=== PATIENT | female | born 1945 | race Caucasian/White ===

== ENCOUNTER 2020-03-30 10:34 | Emergency (ER) | payer MEDICARE ==
[2020-03-30 10:44] VITALS: RESP 18
[2020-03-30] MEDS ORDERED: ASPIRIN 81 MG PO STA (10:59)
--- NOTE | 2020-03-30 11:11 | ED ---
General Adult HPI - General Chief complaint: Extremity Injury, Upper Stated complaint: Shoulder Pain Time Seen by Provider: 03/30/20 10:45 Source: patient, EMS, RN notes reviewed, old records reviewed Mode of arrival: EMS - History of Present Illness Initial comments: 75-year-old female patient to ED for evaluation of left shoulder pain, she reports she is in pain consistently for the last 3 days. She reports that her pain is along her trapezius as well as the anterior aspect of left shoulder. She does report that is tender on palpation reproducible with movement. She denies any falls or any acute injury which he could think of that caused the pain. Denies any anterior chest pain or shortness of breath. Patient does have a history of atrial fibrillation which he is anticoagulated on xaralto, however she does not have any prior cardiac history otherwise. Systemic: Pt denies fatigue, fever/chills, rash. Pt denies weakness, night sweats, weight loss. Neuro: Pt denies headache, visual disturbances, syncope or pre-syncope. HEENT: Pt denies ocular discharge or irritation, otalgia, rhinorrhea, pharyngitis or notable lymphadenopathy. Cardiopulmonary: Pt denies chest pain, SOB, heart palpitations, dyspnea on exertion. Abdominal/GI: Pt denies abdominal pain, n/v/d. : Pt denies dysuria, burning w/ urination, frequency/urgency. Denies new onset urinary or bowel incontinence. MSK: Pt denies loss of strength or function in extremities. Neuro: Pt denies new onset weakness, paresthesias. - Related Data Home Medications Medication Instructions Recorded Confirmed Acetaminophen Tab [Tylenol Tab] 1,000 mg PO Q6HR PRN 03/30/20 03/30/20 Albuterol Inhaler [Ventolin Hfa 1 puff INHALATION RT-Q4H PRN 03/30/20 03/30/20 Inhaler] Ascorbic Acid/Multivit-Min 1,000 mg PO DAILY 03/30/20 03/30/20 [Emergen-C 1,000 mg Packet] Aspirin/Acetaminophen/Caffeine 1 tab PO DAILY PRN 03/30/20 03/30/20 [Excedrin Migraine Caplet] Aspirin/Sod Bicarb/Citric Acid 1 tab PO DAILY PRN 03/30/20 03/30/20 [Dodie-Westfir Original Tab Eff] Atorvastatin [Lipitor] 20 mg PO HS 03/30/20 03/30/20 Bismuth Subsalicylate 30 mg PO DAILY PRN 03/30/20 03/30/20 [Pepto-Bismol] Cholecalciferol [Vitamin D3 (25 1,000 unit PO BID 03/30/20 03/30/20 Mcg = 1000 Iu)] Dulaglutide [Trulicity] 1.5 mg SQ BAKER 03/30/20 03/30/20 Fexofenadine HCl [Pallavi Allergy] 180 mg PO DAILY 03/30/20 03/30/20 Fluticasone Nasal [place] [Flonase 1 spr EA NOSTRIL DAILY PRN 03/30/20 03/30/20 Nasal [place]] Glucosam/Kenneth-Msm1/C/Jayy/Bosw 2 tab PO BID 03/30/20 03/30/20 [Glucosamine-Chondroitin Tablet] Insulin Aspart (Niacinamide) 12 - 14 units SQ AC-TID 03/30/20 03/30/20 [Fiasp 100 Unit/ml Flextouch] Insulin Detemir [Levemir Flextouch] 42 units SQ HS MDD PLUS SCALE 03/30/20 03/30/20 Insulin Detemir [Levemir Flextouch] See Protocol SQ HS PRN 03/30/20 03/30/20 Lisinopril-Hctz 20-25 mg 1 tab PO DAILY 03/30/20 03/30/20 [Zestoretic 20-25] Meclizine [Antivert] 12.5 mg PO HS 03/30/20 03/30/20 Metoprolol Succinate [Toprol XL] 50 mg PO BID 03/30/20 03/30/20 Naproxen Sodium [Aleve] 220 mg PO DAILY PRN 03/30/20 03/30/20 Occular Nutrition Hi Health 1 tab PO DAILY 03/30/20 03/30/20 [place]-3 Fatty Acids/Fish Oil [Fish 1 cap PO DAILY 03/30/20 03/30/20 Oil 1,000 mg Softgel] RX: Lansoprazole 30 mg PO DAILY 03/30/20 03/30/20 RX: metFORMIN HCL 2,000 mg PO HS 03/30/20 03/30/20 Rivaroxaban [Xarelto] 20 mg PO HS 03/30/20 03/30/20 Symbicort Unknown Dose 2 puff INHALATION RT-BID PRN 03/30/20 03/30/20 Tiotropium 18 Mcg/Puff [Spiriva] 1 puff INHALATION DAILY PRN 03/30/20 03/30/20 Allergies Allergy/AdvReac Type Severity Reaction Status Date / Time No Known Allergies Allergy Verified 03/30/20 13:02 Review of Systems ROS Statement: Those systems with pertinent positive or pertinent negative responses have been documented in the HPI. ROS Other: All systems not noted in ROS Statement are negative. Past Medical History Past Medical History: Atrial Fibrillation, Diabetes Mellitus, Osteoarthritis (OA) History of Any Multi-Drug Resistant Organisms: None Reported Past Surgical History: Hysterectomy Additional Past Surgical History / Comment(s): LUMPECTOMY Smoking Status: Second hand smoke exposure Past Alcohol Use History: None Reported Past Drug Use History: None Reported General Exam - General Exam Comments Initial Comments: Constitutional: NAD, AOX3, Pt has pleasant affect. HEENT: NC/AT, trachea midline, neck supple, no lymphadenopathy. Posterior pharynx non erythematous, without exudates. External ears appear normal, without discharge. Mucous membranes moist. Eyes PERRLA, EOM intact. There is no scleral icterus. No pallor noted. Cardiopulmonary: RRR, no murmurs, rubs or gallops, no JVD noted. Lungs CTAB in anterior and posterior snell. No peripheral edema. Abdominal exam: Abdomen soft and non-distended. Abdomen non-tender to palpation in all 4 quadrants. Bowel sounds active in LLQ. No hepatosplenomegaly. No ecchymosis Neuro: CN II-XII grossly intact. No nuchal rigidity. No raccon eyes, no hare sign, no hemotympanum. No cervical spinal tenderness. MSK: No posterior calf tenderness bilaterally, homans sign negative bilaterally. Posterior tibialis and radial pulse +2 bilaterally. Sensation intact in upper and lower extremities. Full active ROM in upper and lower extremities. mild tenderness along the left lateral trapezius as well as the anterior shoulder. Range of motion is intact and strength is intact but this does reproduce discomfort. Empty can test positive. Radial Pulses intact and equal. Course Vital Signs 03/30/20 10:38 Temperature 99.5 F Pulse Rate 77 Respiratory 18 Rate Blood Pressure 134/71 O2 Sat by Pulse 97 Oximetry Medical Decision Making - Medical Decision Making 75-year-old female patient to ED for left shoulder pain for the last 3 days. Patient also had a stable, afebrile. Patient does have tenderness to palpation of the shoulder there is no skin changes range of motion reproduces discomfort. Plain films displayed mild to moderate before meals joint osteoarthritis with inferior spurring which may contribute to subacromial impingement. Possible loss of subacromial space. EKG is nonischemic. Laboratory investigations are otherwise unremarkable. Troponin is negative. Chest x-ray is negative for acute process. Patient's symptoms appear to be secondary to musculoskeletal process. Patient will be discharged PCP as well as outpatient orthopedic follow-up as well as return precautions. Case discussed with Dr. Zuleat. - Lab Data Result diagrams: 03/30/20 11:40 03/30/20 11:40 Lab Results 03/30/20 03/30/20 03/30/20 Range/Units 11:40 11:40 11:40 WBC 9.4 (3.8-10.6) k/uL RBC 4.63 (3.80-5.40) m/uL Hgb 13.9 (11.4-16.0) gm/dL Hct 40.1 (34.0-46.0) % MCV 86.5 (80.0-100.0) fL MCH 29.9 (25.0-35.0) pg MCHC 34.6 (31.0-37.0) g/dL RDW 13.0 (11.5-15.5) % Plt Count 362 (150-450) k/uL MPV 6.4 Neutrophils % 66 % Lymphocytes % 22 % Monocytes % 6 % Eosinophils % 3 % Basophils % 1 % Neutrophils # 6.2 (1.3-7.7) k/uL Lymphocytes # 2.1 (1.0-4.8) k/uL Monocytes # 0.6 (0-1.0) k/uL Eosinophils # 0.3 (0-0.7) k/uL Basophils # 0.1 (0-0.2) k/uL PT 10.9 (9.0-12.0) sec INR 1.1 (<1.2) APTT 24.3 (22.0-30.0) sec Sodium 139 (137-145) mmol/L Potassium 4.1 (3.5-5.1) mmol/L Chloride 103 (98-107) mmol/L Carbon Dioxide 27 (22-30) mmol/L Anion Gap 9 mmol/L BUN 17 (7-17) mg/dL Creatinine 0.86 (0.52-1.04) mg/dL Est GFR (CKD-EPI)AfAm 77 (>60 ml/min/1.73 sqM) Est GFR (CKD-EPI)NonAf 66 (>60 ml/min/1.73 sqM) Glucose 159 H (74-99) mg/dL Calcium 9.8 (8.4-10.2) mg/dL Magnesium 1.7 (1.6-2.3) mg/dL Total Bilirubin 0.5 (0.2-1.3) mg/dL AST 28 (14-36) U/L ALT 27 (4-34) U/L Alkaline Phosphatase 75 (38-126) U/L Troponin I (0.000-0.034) ng/mL NT-Pro-B Natriuret Pep pg/mL Total Protein 6.6 (6.3-8.2) g/dL Albumin 4.1 (3.5-5.0) g/dL 03/30/20 03/30/20 Range/Units 11:40 11:40 WBC (3.8-10.6) k/uL RBC (3.80-5.40) m/uL Hgb (11.4-16.0) gm/dL Hct (34.0-46.0) % MCV (80.0-100.0) fL MCH (25.0-35.0) pg MCHC (31.0-37.0) g/dL RDW (11.5-15.5) % Plt Count (150-450) k/uL MPV Neutrophils % % Lymphocytes % % Monocytes % % Eosinophils % % Basophils % % Neutrophils # (1.3-7.7) k/uL Lymphocytes # (1.0-4.8) k/uL Monocytes # (0-1.0) k/uL Eosinophils # (0-0.7) k/uL Basophils # (0-0.2) k/uL PT (9.0-12.0) sec INR (<1.2) APTT (22.0-30.0) sec Sodium (137-145) mmol/L Potassium (3.5-5.1) mmol/L Chloride (98-107) mmol/L Carbon Dioxide (22-30) mmol/L Anion Gap mmol/L BUN (7-17) mg/dL Creatinine (0.52-1.04) mg/dL Est GFR (CKD-EPI)AfAm (>60 ml/min/1.73 sqM) Est GFR (CKD-EPI)NonAf (>60 ml/min/1.73 sqM) Glucose (74-99) mg/dL Calcium (8.4-10.2) mg/dL Magnesium (1.6-2.3) mg/dL Total Bilirubin (0.2-1.3) mg/dL AST (14-36) U/L ALT (4-34) U/L Alkaline Phosphatase (38-126) U/L Troponin I <0.012 (0.000-0.034) ng/mL NT-Pro-B Natriuret Pep 1200 pg/mL Total Protein (6.3-8.2) g/dL Albumin (3.5-5.0) g/dL Disposition Clinical Impression: Shoulder pain Disposition: HOME SELF-CARE Condition: Stable Instructions (If sedation given, give patient instructions): Rotator Cuff Injury (ED), Shoulder Sprain (ED) Additional Instructions: Follow up with PCP tomorrow. Follow up with orthopedic consult tomorrow. Return to ED with any worsening symptoms. Is patient prescribed a controlled substance at d/c from ED?: No Referrals: Nonstaff,Physician [REFERRING] - 1-2 days Natan Bunch MD [STAFF PHYSICIAN] - 1-2 days
[2020-03-30 11:49] LABS: Basophils # (A) 0.1 k/uL (0-0.2); Basophils % (A) 1 %; Eosinophils # (A) 0.3 k/uL (0-0.7); Eosinophils % (A) 3 %; HCT 40.1 % (34.0-46.0); HGB 13.9 gm/dL (11.4-16.0); Lymphocytes # (A) 2.1 k/uL (1.0-4.8); Lymphocytes % (A) 22 %; MCH 29.9 pg (25.0-35.0); MCHC 34.6 g/dL (31.0-37.0); MCV 86.5 fL (80.0-100.0); Mean Platelet Volume 6.4; Monocytes # (A) 0.6 k/uL (0-1.0); Monocytes % (A) 6 %; Neutrophils # (A) 6.2 k/uL (1.3-7.7); Neutrophils % (A) 66 %; Platelet Count 362 k/uL (150-450); RBC 4.63 m/uL (3.80-5.40); WBC 9.4 k/uL (3.8-10.6)
[2020-03-30 11:59] LABS: INR 1.1 (<1.2); Partial Thromboplastin Time 24.3 sec (22.0-30.0); Prothrombin Time 10.9 sec (9.0-12.0)
[2020-03-30 12:04] LABS: Albumin 4.1 g/dL (3.5-5.0); Calcium 9.8 mg/dL (8.4-10.2); Magnesium 1.7 mg/dL (1.6-2.3); Potassium 4.1 mmol/L (3.5-5.1); Total Bilirubin 0.5 mg/dL (0.2-1.3); Total Protein 6.6 g/dL (6.3-8.2)
--- NOTE | 2020-03-30 12:05 | XR ---
EXAMINATION TYPE: XR chest 2V DATE OF EXAM: 03/30/2020 COMPARISON: None HISTORY: 75-year-old female with chest pain and left shoulder pain TECHNIQUE: AP and lateral views FINDINGS: Heart limits of normal in size. The aorta and pulmonary vasculature within normal limits. Mild inters titial prominence has a chronic appearance. No consolidation or pleural effusion. IMPRESSION: Chronic appearing changes without acute cardiopulmonary process.
--- NOTE | 2020-03-30 12:07 | XR ---
EXAMINATION TYPE: XR shoulder complete LT DATE OF EXAM: 03/30/2020 Comparison: None Clinical History: 75-year-old female shoulder pain Findings: Mild to moderate degenerative change at the AC joint. Inferior spurring is present. There may be some narrowing of the subacromial space on the Grashey view. Some bony irregularity at the greater tubero sity. No acute fracture, subluxation, or dislocation seen. Impression: 1. Tjlh-ea-baeibqcd AC joint OA but with inferior spurring which may contribute to subacromial imping ement. 2. Possible loss of the subacromial space on the Grashey view. If concern for underlying full-thickne ss rotator cuff tear, MRI can be performed. 3. Otherwise, no acute osseous abnormality seen.
[2020-03-30] MEDS ORDERED: MORPHINE SULFATE 2 MG/ML SYRINGE IV STA (12:25)
[2020-03-30] MEDS ORDERED: ACET/COD 300 MG/30 MG STARTER PACK 6 TAB BTL PO STA (13:52)
[2020-03-30 14:19] VITALS: BP 132/76; PULSE 79; TEMP 98.9
== END 2020-03-30 14:21 | disposition home or self-care (01) ==
LOC: EC 10:34
DX: M25.512 Pain in left shoulder (principal); M19.012 Primary osteoarthritis, left shoulder; I48.91 Unspecified atrial fibrillation; E11.9 Type 2 diabetes mellitus without complications; Z79.899 Other long term (current) drug therapy; Z79.4 Long term (current) use of insulin; Z79.01 Long term (current) use of anticoagulants; Z77.22 Contact with and (suspected) exposure to environmental tobacco smoke (acute) (chronic)
CPT/HCPCS: 36415; 93005; 83880; 80053; 83735; 84484; 85025; 85610; 85730; 73030; 71046; 99285; 96374; J2270

== ENCOUNTER → 2020-11-15 | Outpatient (CLI) | payer MEDICARE ==
--- NOTE | 2020-11-15 10:31 | CT ---
EXAMINATION TYPE: CT lumbar spine wo con DATE OF EXAM: 11/15/2020 10:10 AM COMPARISON: None HISTORY: Pain CT DLP: 2106.2 mGycm Automated exposure control for dose reduction was used. Unenhanced CT of the lumbar spine was performed. Bone and soft tissue window settings are submitted as well as coronal and sagittal reconstructions. L1-L2: Normal disc space height. No disc herniation protrusion or central stenosis. No facet joint arthropathy. No evidence for foraminal encroachment. L2-L3: Broad-based central disc bulging with mild effacement of thecal sac. Hypertrophied facets and ligamentum flavum. Borderline canal stenosis and mild bilateral foraminal encroachment. L3-L4: Broad-based central disc bulging with mild effacement of thecal sac. There is facet arthropath y. Mild bilateral foraminal encroachment and mild canal stenosis. Greater disc bulging paracentrally and laterally to left resulting greater left-sided foraminal encroachment. L4-L5: Vacuum disc compatible severe degenerative disc disease with severe advanced facet arthropathy . There is a grade 1 anterolisthesis which appears degenerative. Sclerotic changes involving the pars there is seen L5 bilaterally without evidence of overt defect. A broad-based disc bulging with hyper trophy ligamentum flavum results in moderate canal stenosis and bilateral foraminal encroachment. L5-S1: Severe degenerative disc disease complete loss of disc space. There is facet arthropathy. Ante rior ankylosis of the L5 and S1 vertebral segments. Neural foramina demonstrate mild encroachment joe aterally. No obvious disc herniation or canal stenosis Assessment spinal canal is limited due to resolution artifact. Aorta demonstrates atherosclerotic rancho nges. SI joint arthropathy noted. IMPRESSION: 1. Grade 1 anterolisthesis L4 and L5 with severe facet arthropathy. Disc bulging at this level result s in moderate canal stenosis and bilateral foraminal encroachment. 2. Disc bulging L2-3 and L3-L4 results in canal stenosis and foraminal encroachment as above.
--- NOTE | 2020-11-15 16:59 | MR ---
EXAMINATION TYPE: MR lumbar spine wo con DATE OF EXAM: 11/15/2020 COMPARISON: CT lumbar spine November 15, 2020 HISTORY: Low back pain TECHNIQUE: Multiplanar, multisequence images of the lumbar spine were acquired. Conus medullaris appears normal and is located at L1. Normal lumbar lordosis. Mild anterolisthesis of L4 on L5. Less than 25% body height loss of L5 remaining vertebral body heights are maintained. Bone marrow sig nal. There is multilevel degenerative disc disease in the mid to lower lumbar spine. L1-L2: Normal disc appearance without desiccation. No herniation, protrusion or disc bulging. Bilate ral facet joint arthropathy and small effusions. Ligamentum flavum thickening. No canal stenosis is p resent. Foramina are patent bilaterally. L2-L3: Disc desiccation. Mild disc bulge. Facet joint arthropathy and ligamentum flavum thickening. T here is no canal or neuroforaminal stenosis. L3-L4: Disc desiccation and height loss. Facet joint arthropathy and ligamentum flavum thickening. Th ere is prominent epidural fat. There is severe canal stenosis. Thickened neuroforaminal stenosis. L4-L5: Mild anterolisthesis of L4 on L5 causes mild uncovering of the disc. There is moderate disc he ight loss with vacuum disc phenomena. There is facet joint arthropathy and ligamentum flavum thickeni ng, there is prominent epidural fat. There is moderate canal stenosis. Mild bilateral neural foramina l stenosis, greater on the right. L5-S1: Degenerative disc disease with significant diagnosis. Circumferential disc bulge, facet joint arthropathy and ligamentum flavum thickening. No significant canal or foraminal stenosis. Lumbar segments are intact. No paraspinal masses are identified. 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 No high-grade neural foraminal stenosis.
== END | disposition home or self-care (01) ==
LOC: RADCTMAIN 09:34
PROVIDERS: ATTEND Orthopaedic Surgery
DX: M48.061 Spinal stenosis, lumbar region without neurogenic claudication (principal); M51.26 Other intervertebral disc displacement, lumbar region; M46.96 Unspecified inflammatory spondylopathy, lumbar region
CPT/HCPCS: 72131; 72148

== ENCOUNTER 2020-12-17 06:00 | Inpatient (IN) | payer MEDICARE ==
[2020-12-13 08:49] VITALS: BMI 43.9
--- NOTE | 2020-12-16 10:21 | HP ---
HISTORY AND PHYSICAL CHIEF COMPLAINT: Right knee pain. HISTORY OF PRESENT ILLNESS: Patient is a 75-year-old retired female who presents with progressive right knee pain secondary to osteoarthrosis despite extensive conservative measures for the past several years. It has worsened recently. She is limping. She is having a difficult time in normal activities. She has tried medications in addition to injections, along with attempted weight loss. She notes she is significantly limited. PAST MEDICAL HISTORY: Significant for COPD, type 2 diabetes, atrial fibrillation, gastroesophageal reflux disease and hypertension. PAST SURGICAL HISTORY: Significant for hysterectomy and colonoscopy. CURRENT MEDICATIONS: Albuterol, atorvastatin, lansoprazole, lisinopril, Lovaza, metformin, Xarelto, meloxicam and Tylenol. ALLERGIES: SHE DENIES DRUG ALLERGIES. FAMILY HISTORY: Significant for heart disease and cancer. SOCIAL HISTORY: Negative for current tobacco or alcohol use. REVIEW OF SYSTEMS: Sixteen-point review of systems is otherwise reviewed and noncontributory. PHYSICAL EXAMINATION: On examination, the patient is approximately 5 feet 6 inches, 274 pounds of endomorphic habitus. HEENT exam is nonfocal. Neck is supple. She has painless passive motion of the right hip. Straight-leg raise is negative. Active motion of right knee minus 10 to 105 degrees of flexion. She has a mild effusion. She is tender about the medial joint line. Collaterals are stable, Isadora is negative. Garland's is equivocal. She is tender about the medial joint line. She has genu varum alignment. Her distal neurovascular exam appears intact in the right lower extremity. Weightbearing notch, lateral and Merchant views of the right knee obtained in the office show severe medial compartment narrowing with [id number] changes and subchondral sclerosis. There is also significant medial compartment spurring. IMPRESSION: 1. Right knee severe medial compartment osteoarthrosis. 2. Obesity. 3. [id number]-[id number] diabetes. 4. Atrial fibrillation, on anticoagulation. RECOMMENDATIONS: I talked to the patient at length regarding her condition along with treatment options. At this point she remains quite symptomatic and limited because of pain related to her osteoarthrosis despite previous conservative measures. After thorough discussion, she opted to proceed with surgery. We will plan to proceed with right total knee arthroplasty. We will reinstitute her anticoagulation with Xarelto postoperatively. Risks and benefits were discussed at length in layman's terms. She underwent preoperative medical and cardiac clearance. MMALEXANDRAL / ERICAN: [id number] /
[~2020-12-17 06:00] MED LIST: ACETAMINOPHEN TAB 500 MG TAB PO PRN; DEXAMETHASONE SOD PHOSPHATE 4 MG/ML 1 ML VIAL IV ONE; LIDOCAINE 1% (10MG/ML) FOR IV START INTRADERMA PRN; MELOXICAM 7.5 MG TAB PO PRN; ONDANSETRON 4 MG/2 ML VIAL IVP ONE; ROPIVACAINE/EPI/CLONIDINE/KET 50 ML SYRINGE MISCELLANE PRN; TRANEXAMIC ACID 1,000 MG in SODIUM CHLORIDE 0.9% 100 ML IVPB PRN; ceFAZolin 3 GM in SODIUM CHLORIDE 0.9% 100 ML IVPB PRN
[2020-12-17] MEDS: LACTATED RINGERS 1,000 ML IV SCH ×2 (07:07→22:50)
[2020-12-17 07:09] LABS: Glucose,Whole Blood 167 mg/dL (75-99)
[2020-12-17] MEDS: MIDAZOLAM 2 MG/2 ML VIAL IV PRN ×2 (07:13→07:43)
[2020-12-17] MEDS: fentaNYL (PF) 50 MCG/ML 2 ML AMP IVP PRN ×2 (07:13→07:45)
[2020-12-17] MEDS ORDERED: fentaNYL (PF) 50 MCG/ML 2 ML AMP ONE (07:45)
[2020-12-17] MEDS ORDERED: KETAMINE 10 MG/ML 20 ML VIAL ONE (07:45)
[2020-12-17] MEDS ORDERED: ROPIVACAINE 5 MG/ML 30 ML VIAL ONE (07:45)
[2020-12-17] MEDS ORDERED: PROPOFOL 10 MG/ML 20 ML VIAL IV ONE (07:45)
[2020-12-17] MEDS ORDERED: MIDAZOLAM 2 MG/2 ML VIAL ONE (07:45)
[2020-12-17] MEDS ORDERED: SODIUM CHLORIDE 0.9% 100 ML BAG ONE (07:45)
[2020-12-17] MEDS ORDERED: LIDOCAINE 1% INJ 10MG/ML (20 ML MDV) ONE (07:45)
[2020-12-17] MEDS ORDERED: PHENYLEPHRINE-0.9% NACL SYG 1,000 MCG/10 ML SYRINGE ONE (07:45)
[2020-12-17] MEDS ORDERED: GLYCOPYRROLATE 0.2 MG/ML 2 ML VIAL ONE (07:45)
[2020-12-17] MEDS ORDERED: TRANEXAMIC ACID 1,000 MG/10 ML VIAL ONE (07:45)
[2020-12-17] MEDS ORDERED: ceFAZolin 1,000 MG in SODIUM CHLORIDE 0.9% 1,000 ML IRRIGATION ONE (08:19)
--- NOTE | 2020-12-17 08:21 | P.ANPRN ---
Procedure Note - Anesthesia - Nerve Block Performed Right Adductor Canal Infusion Time Out Performed: Yes Date of Procedure: 12/17/20 Procedure Start Time: 07:12 Procedure Stop Time: :20 Location of Patient: PreOp Indication: Requested by Surgeon Specifically requested for management of pain by DrWally: Natan Bunch Sedation Type: Sedate with meaningful contact maintained Preparation: Sterile Prep, Sterile Dressing Position: Supine Needle Types: Pajunk Needle Gauge: 18, 20, 21 Ultrasound used to visualize needle placement: Yes Ultrasound used to observe medication spread: Yes Injectate: 0.5% Ropivacaine (see comment for volume) (15 ml plus 5ml NS 0.9%) Blood Aspirated: No Pain Paresthesia on Injection Noted: No Resistance on Injection: Normal Image Stored and Saved: Yes Events: Uneventful and Well Tolerated
--- NOTE | 2020-12-17 08:23 | P.ANPRN ---
Procedure Note - Anesthesia - Nerve Block Performed Right iPack Single Time Out Performed: Yes Date of Procedure: 12/17/20 Procedure Start Time: : Procedure Stop Time: :32 Location of Patient: PreOp Indication: Requested by Surgeon Specifically requested for management of pain by DrWally: Natan Bunch Sedation Type: Sedate with meaningful contact maintained Preparation: Sterile Prep Position: Left Lateral Needle Types: Pajunk Needle Gauge: 21 Ultrasound used to visualize needle placement: Yes Ultrasound used to observe medication spread: Yes Injectate: 0.5% Ropivacaine (see comment for volume) (15 ml plus 5 ml NS) Blood Aspirated: No Pain Paresthesia on Injection Noted: No Resistance on Injection: Normal Image Stored and Saved: Yes Events: Uneventful and Well Tolerated
[2020-12-17] MEDS ORDERED: ROPIVACAINE 0.2%-NS ON-Q PUMP 1,090 MG, EMPTY PAIN BALL 1 EACH MISCELLANE PRN (08:24)
[2020-12-17] MEDS ORDERED: LACTATED RINGERS 1,000 ML IV ONE (08:52)
[2020-12-17] MEDS ORDERED: HYDROmorphone 0.5 MG/0.5 ML SYRINGE IVP PRN (09:45)
[2020-12-17] MEDS ORDERED: NALOXONE 0.4 MG/ML 1 ML VIAL IV PRN (09:45)
[2020-12-17] MEDS ORDERED: HYDROcodone/APAP 5-325MG 1 EACH TAB PO PRN (09:45)
[2020-12-17] MEDS ORDERED: ALBUTEROL NEBULIZED 2.5 MG/3 ML INHALATION ONE ×2 (10:08→10:11)
--- NOTE | 2020-12-17 10:09 | P.OP ---
Date of Procedure: 12/17/20 Preoperative Diagnosis: Right knee severe tricompartmental osteoarthrosis Postoperative Diagnosis: Same Procedure(s) Performed: Right total knee arthroplastycementedposterior stabilized Implants: Depuy Attune size 5 cemented femoral component, size 4 cemented tibial component with a 50 mm tibial stem, 9 mm articular surface, 38 mm cemented patellar component. This is a posterior stabilized implant. Anesthesia: regional, spinal Surgeon: Natan Bunch Batting Machine Operator #1: Pasha Aguilar Estimated Blood Loss (ml): 50 Pathology: other (Bone fragments) Condition: stable Disposition: PACU Indications for Procedure: The patient's a 75-year-old female who presents with progressive right knee pain secondary osteoarthrosis despite conservative measures. A discussion of the risks and benefits of operative intervention versus continued conservative measures was made with patient. She proceed with surgery. Operative risks to include infection, neurovascular injury, development of blood clots, fracture, possible component loosening/failure need for subsequent procedures was discussed. Informed consent was obtained. Operative Findings: As below Description of Procedure: The patient was brought to the operating room, and after induction of spinal anesthesia the right lower extremity was prepped and draped in a normal fashion. The tourniquet was inflated to 270 mm marker. A longitudinal incision extending 3 finger breaths above the superior pole of patella extending to the medial aspect the tibial tubercle was then made. The skin and subcutaneous tissues were divided sharply. Electrocautery was used for hemostasis. A medial parapatellar arthrotomy was performed. The medial soft tissues to include the superficial and deep portions of the medial collateral ligament were elevated subperiosteally. The patella was everted. A portion of the retropatellar fat pad was excised sharply. The anterior cruciate ligament was sacrificed. Blunt retractors were placed. A starting hole was made in the distal femur 1 cm anterior to the posterior cruciate ligament origin. An intramedullary femoral guide was then inserted planning on 5 valgus distal cut with 9 mm distal resection. The cutting block was pinned in place. The distal cut was then made. The posterior referencing sizing guide was utilized. I felt size 5 was most appropriate. 3 of external rotation was built into the system and verified off the trans-epicondylar axis and the posterior condyles. The cutting block was pinned in place. The anterior, posterior, and chamfer cuts then made. Bone fragments were removed. The intercondylar guide was placed and the notch cut was made with a sagittal saw. The bone block was removed in one fragment. The trial component was then placed. There is good anterior to posterior and medial to lateral fit. The distal peg holes were drilled. The trial component was removed. Attention was then paid towards preparing the proximal femur. An extra medullary guide was utilized in line with the tibial shaft and second metatarsal distally. I planned on 2 mm resection from the medial compartment. The cutting block was pinned in place. The proximal tibial cut was then made. The bone was removed in one fragment. The remnants of the medial and lateral menisci were excised at the capsular junction with electrocautery. The tibia sized most appropriately at size 4. The trial femoral and tibial components were placed along with a 9 mm articular surface. I was able to obtain full flexion and extension with internal and external rotation. After several flexion and extension cycles, the tibial rotation was marked with electrocautery line with the medial one third of the tibial tubercle. Attention was then paid towards preparing the patella. A patella reamer was utilized taking stem to 14 mm of bone stock. A good flush cut was made. The patella sized most appropriately 38 mm. The peg holes were drilled. The trial components placed. I had good patellofemoral tracking with no hands technique. The trial components were then removed. The tibia was prepared in the appropriate rotation with appropriate drill and keel punch. The posterior osteophytes were removed with a curved osteotome. The flexion and extension gaps were checked and felt to be symmetric at 9 mm. A trial components were then removed. . The bony surfaces were prepared with pulsatile lavage and dried. The tibial component was then cemented place was fully seated. Excess cement was removed. The femoral component cemented place and was fully seated. Excess cement was removed. The trial 9 mm articular surface was placed and the knee was put in full extension. The patella component was cemented place. After the cement had sufficiently hardened, the knee was again taken through a range of motion. Again I was able to obtain full flexion and extension with varus and valgus stress. The trial 9 mm articular surface was removed and the final one inserted. This was fully seated. Care was taken to avoid any soft tissue interposition. Pulsatile lavage was again utilized. The medial parapatellar arthrotomy was closed with #2 Ethibond suture. The tourniquet was deflated with approximately 60 minutes total tourniquet time. Final hemostasis was obtained with the cautery. There was minimal bleeding therefore a deep drain was not p laced. The subcutaneous tissues were reapproximated with interrupted 2-0 Vicryl sutures. The skin was reapproximated with 3-0 subcuticular strata fix suture. Skin tape and adhesive was applied. A sterile dressing was applied. The patient was awoken from sedation and transferred to recovery room in good condition. Blood loss was estimated at 50 mL. No complications were incurred. Sponge and needle counts were correct at the end of the case. Pasha MELO assisted during the major components of this case to include exposure, bone resection, implantation, and closure.
[2020-12-17 10:18] LABS: Glucose,Whole Blood 183 mg/dL (75-99)
--- NOTE | 2020-12-17 10:55 | XR ---
EXAMINATION TYPE: XR knee limited RT DATE OF EXAM: 12/17/2020 COMPARISON: NONE TECHNIQUE: Two views submitted HISTORY: Post op FINDINGS: There is a prosthetic knee in near anatomic alignment. There is soft tissue edema and emphysema. IMPRESSION: 1. Postoperative change. Appears in near-anatomic alignment
[2020-12-17] MEDS: HYDROmorphone 0.5 MG/0.5 ML SYRINGE IVP PRN ×2 (11:13→22:47)
[2020-12-17 11:47] LABS: Glucose,Whole Blood 198 mg/dL (75-99)
--- NOTE | 2020-12-17 13:09 | P.CONS ---
<Abdon Dudley - Last Filed: 12/17/20 18:25> History of Present Illness - Reason for Consult Consult date: 12/17/20 - History of Present Illness History of Presenting Illness: Patient is a very pleasant 75-year-old female with a past medical history of hypertension, hyperlipidemia, insulin-dependent diabetes mellitus, atrial fibrillation on anticoagulation with Xarelto, COPD, and osteoarthrosis. Patient currently admitted under orthopedic surgery team with Dr. Wray status post right total knee replacement. We have been consulted for continued medical management throughout hospitalization. Upon physical examination patient reports postoperative pain currently controlled. Patient denies having any headache, lightheadedness, dizziness, chest pain, palpitations, shortness of breath, abdominal pain, nausea, vomiting, or experiencing any numbness/tingling/weakness in her extremities. Patient denies history of DVT and/or PE. Patient tolerating postoperative diet denying any postoperative nausea or vomiting.patient currently and DVT prophylaxis with Lovenox. M Review of systems: Pertinent positives and negatives as discussed in HPI, a complete review of systems was performed and all other systems are negative. Physical exam: Vital signs reviewed and stable. General: Nontoxic, no distress and appears stated age. Derm: Skin warm and dry, normal coloration for ethnicity. Head: Atraumatic, normocephalic and symmetric. Eyes: EOMs intact, no lid lag, and anicteric sclera Mouth: no lip lesions, mucus membranes moist Cardiovascular: regular rate and rhythm with normal S1S2, no murmur, positive posterior tibial pulses bilaterally, and cap refill < 2 seconds. Lungs: Respirations even, regular, and unlabored on room air. Lungs CTA bilaterally, no rhonchi, no rales, no wheezing, and no accessory muscle usage. Abdominal: soft, nontender to palpation, no guarding, no appreciable organomegaly Ext: ROM intact. No gross muscle atrophy, no edema, no contractures Neuro: Speech clear, face symmetrical and CN II-XII grossly intact with no noted focal neuro deficits Psych: Alert and oriented to person, place, time, and situation. Appropriate and pleasant affect. Assessment and Plan of Care: Status post right knee arthroplasty -surgical procedure completed by Dr. Wray. -DVT prophylaxis, pain management, PT/OT, and weightbearing per primary admitting orthopedic surgery team. -encourage incentive spirometry 10-15 times hourly while awake. hypertension -Monitor vital signs and continue daily medication regimen. hyperlipidemia -continue daily medication regimen -Heart healthy and carb consistent diet insulin-dependent diabetes mellitus -glycemic protocol with NovoLog sliding scale and Levemir 40 units nightly. -Heart healthy carb consistent diet Atrial fibrillation on anticoagulation with Xarelto -May resume Xarelto once cleared by orthopedic surgery. COPD -DuoNeb's and oxygenation as needed. -Encourage incentive spirometry 10-15 times hourly while awake. Thank you for allowing us to participate in the care of this pleasant patient. Do not hesitate to contact us with questions. Someone can be reached from the [facility] [place] hospitalist group all hours of the day at [phone] or via [employer]. Past Medical History Past Medical History: Atrial Fibrillation, COPD, Diabetes Mellitus, GERD/Reflux, Hyperlipidemia, Osteoarthritis (OA), Pneumonia, Sleep Apnea/CPAP/BIPAP Additional Past Medical History / Comment(s): freestyle kathia monitor on rt arm for blood sugars, chronic nasal congestion and sinus issues, "weak bronchial system", hiatal hernia, barretts esophagus, constipation, "rosalva gallbladder", elevated triglycerides, urinary leakage-wears depends, peritonitis after ruptured ovarian cyst, pt thinks she has an infection under her thumb nail- swells and warm to touch History of Any Multi-Drug Resistant Organisms: None Reported Past Surgical History: Appendectomy, Hysterectomy Additional Past Surgical History / Comment(s): surgery for ruptured ovarian cyst, joe cataracts, Past Anesthesia/Blood Transfusion Reactions: Motion Sickness Past Psychological History: No Psychological Hx Reported Smoking Status: Never smoker, Second hand smoke exposure Past Alcohol Use History: Rare Past Drug Use History: None Reported - Past Family History Mother Family Medical History: Cancer Additional Family Medical History / Comment(s): pancreatic Medications and Allergies Home Medications Medication Instructions Recorded Confirmed Type Albuterol Inhaler [Ventolin Hfa 1 puff INHALATION RT-Q4H PRN 03/30/20 12/13/20 History Inhaler] Aspirin/Acetaminophen/Caffeine 1 tab PO DAILY PRN 03/30/20 12/13/20 History [Excedrin Migraine Caplet] Aspirin/Sod Bicarb/Citric Acid 1 tab PO DAILY PRN 03/30/20 12/13/20 History [[place]od[place] Original Tab Eff] Atorvastatin [Lipitor] 20 mg PO HS 03/30/20 12/13/20 History Bismuth Subsalicylate 30 mg PO DAILY PRN 03/30/20 12/13/20 History [Pepto-Bismol] Cholecalciferol [Vitamin D3 (25 1,000 unit PO BID 03/30/20 12/13/20 History Mcg = 1000 Iu)] Dulaglutide [Trulicity] 1.5 mg SQ BAKER 03/30/20 12/13/20 History Fluticasone Nasal [place] [Flonase 1 spr EA NOSTRIL DAILY PRN 03/30/20 12/13/20 History Nasal [place]] Insulin Detemir [Levemir Flextouch] 40 units SQ HS 03/30/20 12/13/20 History Lansoprazole 30 mg PO DAILY 03/30/20 12/13/20 History Lisinopril-Hctz 20-25 mg 1 tab PO DAILY 03/30/20 12/13/20 History [Zestoretic 20-25] Meclizine [Antivert] 12.5 mg PO HS 03/30/20 12/13/20 History Metoprolol Succinate [Toprol XL] 50 mg PO BID 03/30/20 12/13/20 History Occular Nutrition Hi Health 2 tab PO BID 03/30/20 12/13/20 History Rivaroxaban [Xarelto] 20 mg PO HS 03/30/20 12/13/20 History Tiotropium 18 Mcg/Puff [Spiriva] 1 puff INHALATION DAILY PRN 03/30/20 12/13/20 History metFORMIN HCL [Glucophage] 2,000 mg PO HS 03/30/20 12/13/20 History Acetaminophen-Codeine 300-30mg 1 tab PO TID PRN 12/13/20 12/13/20 History [Tylenol w/codeine #3] Fexofenadine/Pseudoephedrine 1 tab PO DAILY 12/13/20 12/13/20 History [Pallavi-D 24 Hour Tablet] Insulin Aspart (Niacinamide) 0 units SQ AC-TID 12/13/20 12/13/20 History [Fiasp 100 Unit/ml Flextouch Pen] [place]-3 Acid Ethyl Esters [Lovaza] 2 gm PO BID 12/13/20 12/13/20 History Allergies Allergy/AdvReac Type Severity Reaction Status Date / Time No Known Allergies Allergy Verified 12/17/20 06:39 Physical Exam Vitals: Vital Signs Temp Pulse Pulse Resp BP BP Pulse Ox 12/17/20 11:29 74 18 135/77 98 12/17/20 11:00 77 16 157/80 96 12/17/20 10:51 72 16 153/70 98 12/17/20 10:36 74 16 145/65 100 12/17/20 10:21 73 16 137/87 99 12/17/20 10:06 97.4 F L 74 18 121/65 98 12/17/20 07:32 16 115/56 98 12/17/20 07:12 15 118/62 98 12/17/20 06:57 97.3 F L 78 15 139/79 97 Intake and Output 12/16/20 12/17/20 12/17/20 22:59 06:59 14:59 Intake Total 1501 Output Total 50 Balance 1451 Intake: IV 1501 Output: Estimated Blood Loss 50 Other: Weight 121.6 kg Results Labs: Abnormal Lab Results - Last 24 Hours (Table) 12/17/20 12/17/20 12/17/20 Range/Units 07:03 10:16 11:46 POC Glucose (mg/dL) 167 H 183 H 198 H (75-99) mg/dL <Umm Chacon - Last Filed: 12/17/20 18:49> History of Present Illness - Chief Complaint Medical management Physical Exam Osteopathic Statement: *. No significant issues noted on an osteopathic structural exam other than those noted in the History and Physical/Consult. Vitals: Vital Signs Temp Pulse Pulse Resp BP BP Pulse Ox 12/17/20 16:01 94 L 12/17/20 14:00 97.4 F L 75 18 122/77 97 12/17/20 11:29 74 18 135/77 98 12/17/20 11:00 77 16 157/80 96 12/17/20 10:51 72 16 153/70 98 12/17/20 10:36 74 16 145/65 100 12/17/20 10:21 73 16 137/87 99 12/17/20 10:06 97.4 F L 74 18 121/65 98 12/17/20 07:32 16 115/56 98 12/17/20 07:12 15 118/62 98 12/17/20 06:57 97.3 F L 78 15 139/79 97 Intake and Output 12/17/20 12/17/20 12/17/20 06:59 14:59 22:59 Intake Total 1501 Output Total 50 Balance 1451 Intake: IV 1501 Output: Estimated Blood Loss 50 Other: Weight 121.6 kg 121.6 kg Results Labs: Abnormal Lab Results - Last 24 Hours (Table) 12/17/20 12/17/20 12/17/20 Range/Units 07:03 10:16 11:46 POC Glucose (mg/dL) 167 H 183 H 198 H (75-99) mg/dL 12/17/20 Range/Units 16:37 POC Glucose (mg/dL) 302 H (75-99) mg/dL Assessment and Plan Assessment: I reviewed the documentation as provided by the REGINA above, who is the original author of this note. I agree with the documented assessment and plan, with the following changes: none
[2020-12-17] MEDS ORDERED: ALBUTEROL NEBULIZED 2.5 MG/3 ML INHALATION PRN (15:00)
[2020-12-17] MEDS ORDERED: IPRATROPIUM 0.5 MG/2.5 ML NEBU INHALATION PRN (15:00)
[2020-12-17 16:39] LABS: Glucose,Whole Blood 302 mg/dL (75-99)
[2020-12-17] MEDS: INSULIN ASPART (NovoLOG) 100 UNIT/ML VIAL SQ SCH ×2 (16:45→22:48)
[2020-12-17] MEDS: ceFAZolin 3 GM in SODIUM CHLORIDE 0.9% 100 ML IVPB SCH (16:45)
[2020-12-17] MEDS ORDERED: FLUTICASONE 50MCG/SPRAY NASAL 16GM EA NOSTRIL PRN (18:27)
[2020-12-17 21:19] LABS: Glucose,Whole Blood 209 mg/dL (75-99)
[2020-12-17] MEDS: INSULIN DETEMIR (LEVEMIR) 100 UNIT/ML SYR SQ SCH (22:47)
[2020-12-17] MEDS: ATORVASTATIN 20 MG TAB PO SCH (22:48)
[2020-12-17] MEDS: SENNOSIDES-DOCUSATE SODIUM 1 EACH TAB PO SCH (22:48)
[2020-12-17] MEDS: METOPROLOL SUCCINATE (ER) 50 MG TAB.ER.24H PO SCH (22:48)
[2020-12-17] MEDS: MECLIZINE 12.5 MG TAB PO SCH (22:55)
[2020-12-18] MEDS ORDERED: ENOXAPARIN 30 MG/0.3 ML SYRINGE SQ SCH
[2020-12-18] MEDS: ceFAZolin 3 GM in SODIUM CHLORIDE 0.9% 100 ML IVPB SCH (05:55)
[2020-12-18] MEDS: HYDROcodone/APAP 7.5-325MG 1 EACH TAB PO PRN ×4 (05:56→22:22)
[2020-12-18 06:22] LABS: African American GFR (CKD) 78 (>60 ml/min/1.73 sqM); Anion Gap 9 mmol/L; Blood Urea Nitrogen 22 mg/dL (7-17); Calcium 9.4 mg/dL (8.4-10.2); Carbon Dioxide 23 mmol/L (22-30); Chloride 104 mmol/L (98-107); Glucose 131 mg/dL (74-99); Non-African American GFR(CKD) 68 (>60 ml/min/1.73 sqM); Sodium 136 mmol/L (137-145)
[2020-12-18 07:12] LABS: Glucose,Whole Blood 134 mg/dL (75-99)
--- NOTE | 2020-12-18 07:14 | P.PN ---
Progress Note - Text Progress Note Date: 12/18/20 Postoperative day # 1 status post total knee arthroplasty, and adductor canal catheter placed for postoperative analgesia, currently at ropivacaine 0.2% 8 mL per hour and continuous infusion, visual analogue scale is 5/10, patient using oral pain medication for breakthrough pain. Assessment and plan= Acute postoperative pain, adductor canal catheter for pain control, pain is well controlled we'll continue the same management.
[2020-12-18] MEDS: PANTOPRAZOLE 40 MG TABLET PO SCH (07:35)
[2020-12-18] MEDS: LISINOPRIL-HCTZ 20-25 MG 1 EACH TAB PO SCH (07:35)
[2020-12-18] MEDS: METOPROLOL SUCCINATE (ER) 50 MG TAB.ER.24H PO SCH ×2 (07:35→22:14)
[2020-12-18] MEDS: INSULIN ASPART (NovoLOG) 100 UNIT/ML VIAL SQ SCH ×4 (07:36→22:14)
--- NOTE | 2020-12-18 08:07 | P.PN ---
<Abdon Dudley - Last Filed: 12/18/20 13:38> Subjective Progress Note Date: 12/18/20 Hospital Course: Patient is a very pleasant 75-year-old female with a past medical history of hy pertension, hyperlipidemia, insulin-dependent diabetes mellitus, atrial fibrillation on anticoagulation with Xarelto, COPD, and osteoarthrosis. Patient admitted under orthopedic surgery team with Dr. Wray status post right total knee replacement completed on 12/17/20. We have been consulted for continued medical management throughout her hospitalization. Physical exam: Patient seen and fully evaluated at bedside this morning. Patient sitting up in chair and working with physical therapy upon assessment. Patient was able to stand with assistance. Patient denies having any headache, lightheadedness, dizziness, chest pain, palpitations, shortness of breath, nausea, vomiting, or experiencing any numbness/tingling/weakness. Patient reports postoperative pain is controlled and states she is only experiencing "tenderness." Morning labs reviewed and stable. Vital signs reviewed and stable. General: Nontoxic, no distress and appears stated age. Derm: Skin warm and dry, normal coloration for ethnicity. JUAN JOSÉ hose and Dressing to right knee, clean dry and intact. Head: Atraumatic, normocephalic and symmetric. Eyes: EOMs intact, no lid lag, and anicteric sclera Mouth: no lip lesions, mucus membranes moist Cardiovascular: regular rate and rhythm with normal S1S2, no murmur, positive posterior tibial pulses bilaterally, and cap refill < 2 seconds. Lungs: Respirations even, regular, and unlabored on room air. Lungs CTA bilaterally, no rhonchi, no rales, no wheezing, and no accessory muscle usage. Abdominal: soft, nontender to palpation, no guarding, no appreciable organomegaly Ext: ROM intact. No gross muscle atrophy, no edema, no contractures Neuro: Speech clear, face symmetrical and CN II-XII grossly intact with no noted focal neuro deficits Psych: Alert and oriented to person, place, time, and situation. Appropriate and pleasant affect. Assessment and Plan of Care: Status post right knee arthroplasty -Surgical procedure completed by Dr. Wray. -DVT prophylaxis, pain management, PT/OT, and weightbearing per primary admitting orthopedic surgery team. -Encourage incentive spirometry 10-15 times hourly while awake. -Currently DVT prophylaxis with Xarelto Hypertension -Monitor vital signs and continue daily medication regimen. Hyperlipidemia -Continue daily medication regimen -Heart healthy and carb consistent diet Insulin-dependent diabetes mellitus -Glycemic protocol with NovoLog sliding scale and Levemir 40 units nightly. -Heart healthy carb consistent diet Atrial fibrillation on anticoagulation with Xarelto -Xarelto resumed COPD -DuoNeb's and oxygenation as needed. -Encourage incentive spirometry 10-15 times hourly while awake. Thank you for allowing us to participate in the care of this pleasant patient. Do not hesitate to contact us with questions. Someone can be reached from the [facility] [place] hospitalist group all hours of the day at [phone] or via [employer]. Objective - Vital Signs Vital signs: Vital Signs Temp 99.3 F 12/18/20 07:46 Pulse 81 12/18/20 07:46 Resp 17 12/18/20 07:46 BP 115/66 12/18/20 07:46 Pulse Ox 96 12/18/20 07:46 Intake & Output 12/17/20 12/18/20 12/18/20 18:59 06:59 18:59 Intake Total 1501 540 Output Total 50 Balance 1451 540 Weight 121.6 kg Intake: IV 1501 Oral 540 Output: Estimated Blood Loss 50 Other: # Voids 2 4 - Labs CBC & Chem 7: 12/18/20 05:48 12/18/20 05:48 Labs: Abnormal Lab Results - Last 24 Hours (Table) 12/17/20 12/17/20 12/17/20 Range/Units 10:16 11:46 16:37 Sodium (137-145) mmol/L BUN (7-17) mg/dL Glucose (74-99) mg/dL POC Glucose (mg/dL) 183 H 198 H 302 H (75-99) mg/dL 12/17/20 12/18/20 12/18/20 Range/Units 21:18 05:48 07:11 Sodium 136 L (137-145) mmol/L BUN 22 H (7-17) mg/dL Glucose 131 H (74-99) mg/dL POC Glucose (mg/dL) 209 H 134 H (75-99) mg/dL <Aneta Richmond - Last Filed: 12/18/20 21:24> Subjective Abdon Dudley NP rendered care for this patient independently, reviewed the findings and plan as documented in the note above. I did not physically speak with or examine the patient on this date. Objective - Vital Signs Vital signs: Vital Signs Temp 98.3 F 12/18/20 14:00 Pulse 97 12/18/20 19:08 Resp 18 12/18/20 19:08 BP 132/76 12/18/20 14:00 Pulse Ox 96 12/18/20 14:00 Intake & Output 12/18/20 12/18/20 12/19/20 06:59 18:59 06:59 Intake Total 540 Balance 540 Intake: Oral 540 Other: Voiding Method Toilet Toilet # Voids 4 6 - Labs CBC & Chem 7: 12/18/20 05:48 12/18/20 05:48 Labs: Abnormal Lab Results - Last 24 Hours (Table) 12/18/20 12/18/20 12/18/20 Range/Units 05:48 05:48 07:11 RBC 3.67 L (4.10-5.20) X 10*6/uL Hgb 10.6 L (12.0-15.0) g/dL Hct 32.5 L (37.2-46.3) % Monocytes # 1.06 H (0.20-1.00) X 10*3/uL Sodium 136 L (137-145) mmol/L BUN 22 H (7-17) mg/dL Glucose 131 H (74-99) mg/dL POC Glucose (mg/dL) 134 H (75-99) mg/dL 12/18/20 12/18/20 Range/Units 11:16 16:38 RBC (4.10-5.20) X 10*6/uL Hgb (12.0-15.0) g/dL Hct (37.2-46.3) % Monocytes # (0.20-1.00) X 10*3/uL Sodium (137-145) mmol/L BUN (7-17) mg/dL Glucose (74-99) mg/dL POC Glucose (mg/dL) 203 H 256 H (75-99) mg/dL
[2020-12-18 10:32] LABS: Basophils # (A) 0.04 X 10*3/uL (0.00-0.10); Basophils % (A) 0.4 %; Eosinophils # (A) 0.28 X 10*3/uL (0.04-0.35); HCT 32.5 % (37.2-46.3); HGB 10.6 g/dL (12.0-15.0); Lymphocytes # (A) 2.51 X 10*3/uL (0.90-5.00); Lymphocytes % (A) 27.1 %; MCH 28.9 pg (27.0-32.0); MCHC 32.6 g/dL (32.0-37.0); MCV 88.6 fL (80.0-97.0); Mean Platelet Volume 9.5 fL (9.5-12.2); Monocytes # (A) 1.06 X 10*3/uL (0.20-1.00); Monocytes % (A) 11.4 %; Neutrophils # (A) 5.33 X 10*3/uL (1.80-7.70); Neutrophils % (A) 57.7 %; Platelet Count 306 X 10*3/uL (140-440); RBC 3.67 X 10*6/uL (4.10-5.20); RDW 13.3 % (11.5-14.5); WBC 9.26 X 10*3/uL (4.50-10.00)
[2020-12-18 11:17] LABS: Glucose,Whole Blood 203 mg/dL (75-99)
--- NOTE | 2020-12-18 11:17 | P.PN ---
Subjective Progress Note Date: 12/18/20 Principal diagnosis: Right knee osteoarthritis Patient seen at bedside this morning. Patient was sitting in chair icing knee. Patient says she has been moderate amount of pain since yesterday. She says she has pain mostly at the backside of her knee as well over her iverson. Patient says she did work physical therapy this morning got up and walk to the bathroom and back to her chair. Patient says she would like to go to rehab, preferably [facility]. Patient says she has not had bowel movement yet, however, patient says she has passed gas. Patient denies chest pain, fever, chest breath, vomiting, change in vision, loss of bowel/bladder control. Objective - Vital Signs Vital signs: Vital Signs Temp 99.3 F 12/18/20 07:46 Pulse 81 12/18/20 08:00 Resp 17 12/18/20 08:00 BP 115/66 12/18/20 07:46 Pulse Ox 96 12/18/20 07:46 Intake & Output 12/17/20 12/18/20 12/18/20 18:59 06:59 18:59 Intake Total 1501 540 Output Total 50 Balance 1451 540 Weight 121.6 kg Intake: IV 1501 Oral 540 Output: Estimated Blood Loss 50 Other: Voiding Method Toilet # Voids 2 4 - Exam Right knee: Incision is clean, dry, and intact. The exofin fusion tape is in good condition. There is minimal soft tissue swelling and ecchymosis surrounding the medial and lateral aspects of the incision. Calf is soft, no tenderness with palpation. Plantar flexion, dorsiflexion, EHL, FHL are intact. Sensory exam to light touch throughout the extremity is intact, dorsal pedis pulses 2+. - Labs CBC & Chem 7: 12/18/20 05:48 12/18/20 05:48 Labs: Abnormal Lab Results - Last 24 Hours (Table) 12/17/20 12/17/20 12/17/20 Range/Units 11:46 16:37 21:18 RBC (4.10-5.20) X 10*6/uL Hgb (12.0-15.0) g/dL Hct (37.2-46.3) % Monocytes # (0.20-1.00) X 10*3/uL Sodium (137-145) mmol/L BUN (7-17) mg/dL Glucose (74-99) mg/dL POC Glucose (mg/dL) 198 H 302 H 209 H (75-99) mg/dL 12/18/20 12/18/20 12/18/20 Range/Units 05:48 05:48 07:11 RBC 3.67 L (4.10-5.20) X 10*6/uL Hgb 10.6 L (12.0-15.0) g/dL Hct 32.5 L (37.2-46.3) % Monocytes # 1.06 H (0.20-1.00) X 10*3/uL Sodium 136 L (137-145) mmol/L BUN 22 H (7-17) mg/dL Glucose 131 H (74-99) mg/dL POC Glucose (mg/dL) 134 H (75-99) mg/dL Assessment and Plan Assessment: Right knee osteoarthritis Plan: 1. Right knee osteoarthritis - right total knee arthroplasty performed yesterday, 12/17/2020. Patient moderate amount of pain this morning. We'll adjust some pain meds 2. Appreciate medical management 3. Pain management - continue Morris 7.5 mg/325 mg; hydromorphone only when needed 4. DVT prophylaxis - Lovenox 5. GI prophylaxis - protonix 6. Encourage incentive spirometer use 7. PT/OT - weightbearing as tolerated with walker and assistance 8. Discharge planning - plan discharge to rehab tomorrow versus Wednesday. Time with Patient: Less than 30
[2020-12-18 14:51] VITALS: RESP 18
[2020-12-18 16:43] LABS: Glucose,Whole Blood 256 mg/dL (75-99)
[2020-12-18] MEDS ORDERED: RIVAROXABAN 20 MG TAB PO SCH (21:00)
[2020-12-18 21:24] LABS: Glucose,Whole Blood 248 mg/dL (75-99)
[2020-12-18] MEDS: SENNOSIDES-DOCUSATE SODIUM 1 EACH TAB PO SCH (22:13)
[2020-12-18] MEDS: ATORVASTATIN 20 MG TAB PO SCH (22:14)
[2020-12-18] MEDS: INSULIN DETEMIR (LEVEMIR) 100 UNIT/ML SYR SQ SCH (22:14)
[2020-12-18] MEDS: MECLIZINE 12.5 MG TAB PO SCH (22:18)
[2020-12-19 06:53] LABS: Glucose,Whole Blood 178 mg/dL (75-99)
[2020-12-19] MEDS: PANTOPRAZOLE 40 MG TABLET PO SCH (08:08)
[2020-12-19] MEDS: METOPROLOL SUCCINATE (ER) 50 MG TAB.ER.24H PO SCH (08:08)
[2020-12-19] MEDS: HYDROcodone/APAP 7.5-325MG 1 EACH TAB PO PRN ×2 (08:09→14:23)
[2020-12-19] MEDS: INSULIN ASPART (NovoLOG) 100 UNIT/ML VIAL SQ SCH ×3 (08:09→16:48)
[2020-12-19] MEDS: LISINOPRIL-HCTZ 20-25 MG 1 EACH TAB PO SCH (08:09)
[2020-12-19] MEDS: LACTATED RINGERS 1,000 ML IV SCH (08:10)
--- NOTE | 2020-12-19 08:43 | P.PN ---
Subjective Progress Note Date: 12/19/20 Principal diagnosis: Status post right total knee arthroplasty Patient is evaluated at bedside today, she is resting comfortably. She is actually sitting at bedside eating breakfast. She did a little nauseated this morning during breakfast. She states that her pain is better controlled today. She has had a bowel movement today. She is utilizing a walker with ambulation. She currently denies any headaches, lightheadedness, chest pain or shortness of breath. Objective - Vital Signs Vital signs: Vital Signs Temp 97.5 F L 12/19/20 07:25 Pulse 76 12/19/20 07:25 Resp 18 12/19/20 07:25 BP 137/75 12/19/20 07:25 Pulse Ox 99 12/19/20 08:39 Intake & Output 12/18/20 12/19/20 12/19/20 18:59 06:59 18:59 Other: Voiding Method Toilet Toilet # Voids 6 1 # Bowel Movements 1 - Exam Right lower extremity: Incision is clean, dry, and intact. The exofin fusion tape is in good condition. There is minimal soft tissue swelling and ecchymosis surrounding the medial and lateral aspects of the incision. Calf is soft, no tenderness with palpation. Plantar flexion, dorsiflexion, EHL, FHL are intact. Sensory exam to light touch throughout the extremity is intact, dorsal pedis pulses 2+. - Labs CBC & Chem 7: 12/18/20 05:48 12/18/20 05:48 Labs: Abnormal Lab Results - Last 24 Hours (Table) 12/18/20 12/18/20 12/18/20 Range/Units 05:48 11:16 16:38 RBC 3.67 L (4.10-5.20) X 10*6/uL Hgb 10.6 L (12.0-15.0) g/dL Hct 32.5 L (37.2-46.3) % Monocytes # 1.06 H (0.20-1.00) X 10*3/uL POC Glucose (mg/dL) 203 H 256 H (75-99) mg/dL 12/18/20 12/19/20 Range/Units 21:24 06:49 RBC (4.10-5.20) X 10*6/uL Hgb (12.0-15.0) g/dL Hct (37.2-46.3) % Monocytes # (0.20-1.00) X 10*3/uL POC Glucose (mg/dL) 248 H 178 H (75-99) mg/dL Assessment and Plan Assessment: Postoperative day #2 status post right total knee arthroplasty Plan: Pain control, plan for discharge on [place] 7.5 mg/325 mg GI and DVT prophylaxis, Xarelto 20 mg daily has been resumed Wound care instructions were discussed Icing and elevating techniques discussed Encourage incentive spirometer Medical recommendations Discharge planning: Plan for discharge to rehab today Time with Patient: Less than 30
[2020-12-19 11:24] LABS: Glucose,Whole Blood 174 mg/dL (75-99)
[2020-12-19 13:17] VITALS: BP 100/56; PULSE 75; TEMP 98.3
--- NOTE | 2020-12-19 15:55 | P.DS ---
Providers Date of admission: 12/17/20 06:00 Expected date of discharge: 12/19/20 Attending physician: Natan Bunch Consults: 12/17/20 09:49 Consult Physician Routine Consulting Provider: Aneta Richmond Consult Reason/Comments: Medical Management s/p right total knee arthroplasty Do you want consulting provider notified?: Yes Primary care physician: Aniya Dietz Hospital Course: Date of admission: 12/17/2020 Date of discharge: 12/19/2020 Admission diagnosis: Status post right total knee arthroplasty Discharge diagnosis: Same Attending physician: Dr. Bunch Surgical procedures: Right total knee arthroplasty Brief history: Patient is a 75-year-old female with a history of progressive primary right knee osteoarthritis. At this point patient has failed conservative treatment measures and has opted to proceed with a elective right total knee arthroplasty. Hospital course: Details of patient's surgery can be found in operative report. Patient tolerated the procedure well and was subsequently transported to orthopedic floor. Patient's orthopeidc and medical care was provided daily. Patient had daily laboratory tests performed for evaluation of overall blood c ounts. Patient had daily physical therapy to include strengthening range of motion as well as education with walker ambulation. Patient was treated with Xarelto for their postoperative DVT prophylaxis during their inpatient stay. Patient was noted to have a relatively uneventful postoperative course. Patient reported satisfactory pain control with oral pain medications by postoperative day 0. Patient showed satisfactory progress with physical therapy. Patient moved steadily through the program and had no difficulty meeting the goals by postoperative day 2. Given patient's otherwise satisfactory course and having met physical therapy goals, plan is to discharge patient rehab on postoperative day 2. Discharge condition/disposition: Patient will be discharged rehab in stable condition. Discharge medications: Instructions are given on resumption of patient's normal daily medications per primary care recommendation, in addition patient will be prescribed [place] 7.5 mg/325 mg, Colace 100 mg. Discharge instructions: 1. Wound care and infection precautions, keep incision dry and covered while showering, no lotions, creams, moisturizers. No soaking, tubs, pools, hottubs. Do not scrub over the incision. 2. Weight-bear as tolerated with walker / cane until follow-up. 3. Ice and elevate when necessary. Do not exceed 20 minutes per hour with ice pack. 4. Utilize compression sleeve until seen at first follow up appointment. 5. Visiting nursing care. 6. Home physical therapy including home CPM. 7. Pain meds and anticoagulants per prescription. 8. Pain medication has potential to cause constipation. Increase oral fluid and fiber intake. Contact primary care provider if you have not had a bowel movement within 48 hours after discharge 9. No anti-inflammatory medication until discussed at first post operative visit, this including Motrin, Aleve, Mobic, Diclofenac. 10. Follow up in office at 2 weeks postop with Rosales Castro PA-C/Pasha Bean 11. Follow up with your primary care doctor 7-10 days after discharge. 12. Contact [facility] with any questions, . Procedures: Right total knee arthroplasty Patient Condition at Discharge: Good Plan - Discharge Summary Discharge Rx Participant: Yes New Discharge Prescriptions: New HYDROcodone/APAP 7.5-325MG [[place] 7.5] 1 each PO Q6HR PRN #28 tab PRN Reason: Pain Docusate [Colace] 100 mg PO DAILY #30 cap Continue Cholecalciferol [Vitamin D3 (25 Mcg = 1000 Iu)] 1,000 unit PO BID Occular Nutrition [place] 2 tab PO BID Tiotropium 18 Mcg/Puff [Spiriva] 1 puff INHALATION DAILY PRN PRN Reason: Shortness Of Breath Lisinopril-Hctz 20-25 mg [Zestoretic 20-25] 1 tab PO DAILY Atorvastatin [Lipitor] 20 mg PO HS Rivaroxaban [Xarelto] 20 mg PO HS Metoprolol Succinate [Toprol XL] 50 mg PO BID Albuterol Inhaler [Ventolin Hfa Inhaler] 1 puff INHALATION RT-Q4H PRN PRN Reason: Shortness Of Breath Meclizine [Antivert] 12.5 mg PO HS Lansoprazole 30 mg PO DAILY Fluticasone Nasal [place] [Flonase Nasal [place]] 1 spr EA NOSTRIL DAILY PRN PRN Reason: Cold Symptoms metFORMIN HCL [Glucophage] 2,000 mg PO HS Insulin Detemir [Levemir Flextouch Pen] 40 units SQ HS Dulaglutide [Trulicity] 1.5 mg SQ BAKER Fexofenadine/Pseudoephedrine [Pallavi-D 24 Hour Tablet] 1 tab PO DAILY Insulin Aspart (Niacinamide) [Fiasp 100 Unit/ml Flextouch Pen] 0 units SQ AC- TID [place]-3 Acid Ethyl Esters [Lovaza] 2 gm PO BID Discontinued Bismuth Subsalicylate [Pepto-Bismol] 30 mg PO DAILY PRN PRN Reason: Indigestion Aspirin/Sod Bicarb/Citric Acid [[place]odie-[place]cf[place] Original Tab Eff] 1 tab PO DAILY PRN PRN Reason: Cold Symptoms Aspirin/Acetaminophen/Caffeine [Excedrin Migraine Caplet] 1 tab PO DAILY PRN PRN Reason: Migraine Headache Acetaminophen-Codeine 300-30mg [Tylenol w/codeine #3] 1 tab PO TID PRN PRN Reason: Pain Discharge Medication List Albuterol Inhaler [Ventolin Hfa Inhaler] 1 puff INHALATION RT-Q4H PRN 03/30/20 [History] Atorvastatin [Lipitor] 20 mg PO HS 03/30/20 [History] Cholecalciferol [Vitamin D3 (25 Mcg = 1000 Iu)] 1,000 unit PO BID 03/30/20 [History] Dulaglutide [Trulicity] 1.5 mg SQ BAKER 03/30/20 [History] Fluticasone Nasal [place] [Flonase Nasal [place]] 1 spr EA NOSTRIL DAILY PRN 03/30/20 [History] Insulin Detemir [Levemir Flextouch Pen] 40 units SQ HS 03/30/20 [History] Lansoprazole 30 mg PO DAILY 03/30/20 [History] Lisinopril-Hctz 20-25 mg [Zestoretic 20-25] 1 tab PO DAILY 03/30/20 [History] Meclizine [Antivert] 12.5 mg PO HS 03/30/20 [History] Metoprolol Succinate [Toprol XL] 50 mg PO BID 03/30/20 [History] Occular Nutrition [place] 2 tab PO BID 03/30/20 [History] Rivaroxaban [Xarelto] 20 mg PO HS 03/30/20 [History] Tiotropium 18 Mcg/Puff [Spiriva] 1 puff INHALATION DAILY PRN 03/30/20 [History] metFORMIN HCL [Glucophage] 2,000 mg PO HS 03/30/20 [History] Fexofenadine/Pseudoephedrine [Pallavi-D 24 Hour Tablet] 1 tab PO DAILY 12/13/20 [History] Insulin Aspart (Niacinamide) [Fiasp 100 Unit/ml Flextouch Pen] 0 units SQ AC-TID 12/13/20 [History] [place]-3 Acid Ethyl Esters [Lovaza] 2 gm PO BID 12/13/20 [History] Docusate [Colace] 100 mg PO DAILY #30 cap 12/19/20 [Rx] HYDROcodone/APAP 7.5-325MG [[place] 7.5] 1 each PO Q6HR PRN #28 tab 12/19/20 [Rx] Follow up Appointment(s)/Referral(s): Pasha Aguilar, SANAM [PHYSICIAN CELL REPAIRER] - 01/02/21 11:20 am Mejia Andre, [NON-STAFF] - As Needed Activity/Diet/Wound Care/Special Instructions: Orthopedic Discharge Instructions: 1. Wound care and infection precautions, keep incision dry and covered while showering, no lotions, creams, moisturizers. No soaking, pools, hot tubs. Do not scrub over incision. Do not remove the tape over the incision, this will be removed at her first postoperative visit 2. Weight-bear as tolerated with walker / cane until follow-up. 3. Ice and elevate when necessary. Do not exceed 20 minutes per hour with ice pack. 4. Utilize compression sleeve until seen at first follow up appointment. 5. Pain meds and anticoagulants per prescription. 6. Pain medication has potential to cause constipation. Increase oral fluid and fiber intake. Contact primary care provider if you have not had a bowel movement within 48 hours after discharge. 7. No anti-inflammatory medication until discussed at first post operative visit, this including Motrin, Aleve, Mobic, Diclofenac. 8. Follow up in office at 2 weeks postop with Rosales Castro PA-C/Pasha Aguilar PA-C 9. Follow up with your primary care doctor 7-10 days after discharge. 10. Contact [facility] with any questions, . Discharge Disposition: TRANSFER TO SNF/ECF
== END 2020-12-19 17:51 | DRG 470 ==
LOC: 2ORMAIN 06:00 → 4SSUR 11:52
PROVIDERS: ADMIT Orthopaedic Surgery; ATTEND Orthopaedic Surgery
PROC: 0SRC0J9 Replacement of Right Knee Joint with Synthetic Substitute, Cemented, Open Approach (ICD-10-PCS; principal; 2020-12-17 07:45)
DX: M17.11 Unilateral primary osteoarthritis, right knee (principal); I48.19 Other persistent atrial fibrillation; Z68.41 Body mass index [BMI] 40.0-44.9, adult; I11.9 Hypertensive heart disease without heart failure; J44.9 Chronic obstructive pulmonary disease, unspecified; E11.65 Type 2 diabetes mellitus with hyperglycemia; E66.01 Morbid (severe) obesity due to excess calories; Z79.4 Long term (current) use of insulin; Z20.822 Contact with and (suspected) exposure to COVID-19; E78.2 Mixed hyperlipidemia; M21.161 Varus deformity, not elsewhere classified, right knee; I08.0 Rheumatic disorders of both mitral and aortic valves; G47.33 Obstructive sleep apnea (adult) (pediatric); K22.70 Barrett's esophagus without dysplasia; K21.9 Gastro-esophageal reflux disease without esophagitis; I87.2 Venous insufficiency (chronic) (peripheral); E78.1 Pure hyperglyceridemia; R32 Unspecified urinary incontinence; K44.9 Diaphragmatic hernia without obstruction or gangrene; K59.00 Constipation, unspecified; Z79.82 Long term (current) use of aspirin; Z79.01 Long term (current) use of anticoagulants; Z79.899 Other long term (current) drug therapy; Z90.710 Acquired absence of both cervix and uterus; Z87.42 Personal history of other diseases of the female genital tract; Z98.42 Cataract extraction status, left eye; Z98.41 Cataract extraction status, right eye; Z87.01 Personal history of pneumonia (recurrent); Z98.890 Other specified postprocedural states
CPT/HCPCS: 64448; 64999; 76942; 80048; 85025; 87635; 88300; 94760

== ENCOUNTER 2022-04-13 17:15 | Emergency (ER) | payer MEDICARE ==
[2022-04-13 18:01] VITALS: TEMP 98
[2022-04-13] MEDS ORDERED: SODIUM CHLORIDE 0.9% 1,000 ML IV ONE (19:27)
[2022-04-13] MEDS ORDERED: KETOROLAC 15 MG/ML 1 ML VIAL IVP STA (19:27)
[2022-04-13 19:57] LABS: Basophils # (A) 0.1 k/uL (0-0.2); Basophils % (A) 1 %; Eosinophils # (A) 0.2 k/uL (0-0.7); Eosinophils % (A) 2 %; HCT 38.1 % (34.0-46.0); HGB 12.9 gm/dL (11.4-16.0); Lymphocytes % (A) 12 %; MCH 29.5 pg (25.0-35.0); MCHC 33.9 g/dL (31.0-37.0); MCV 87.1 fL (80.0-100.0); Mean Platelet Volume 7.1; Monocytes # (A) 0.5 k/uL (0-1.0); Monocytes % (A) 6 %; Neutrophils # (A) 6.1 k/uL (1.3-7.7); Neutrophils % (A) 77 %; Platelet Count 291 k/uL (150-450); RBC 4.37 m/uL (3.80-5.40); RDW 13.5 % (11.5-15.5); WBC 7.9 k/uL (3.8-10.6)
[2022-04-13 20:04] LABS: Albumin 4.4 g/dL (3.5-5.0); Calcium 9.6 mg/dL (8.4-10.2); Potassium 4.2 mmol/L (3.5-5.1)
--- NOTE | 2022-04-13 20:20 | XR ---
EXAMINATION TYPE: XR KUB DATE OF EXAM: 04/13/2022 COMPARISON: NONE HISTORY: Flank pain TECHNIQUE: 2 views Upright FINDINGS: There is no sign of intestinal obstruction or pneumoperitoneum. Fecal pattern is normal. No sign of a mass. Lung bases are clear. No calcifications seen over the kidneys. IMPRESSION: Nonacute abdomen.
--- NOTE | 2022-04-13 20:21 | XR ---
EXAMINATION TYPE: XR lumbar spine 2 or 3V DATE OF EXAM: 04/13/2022 COMPARISON: NONE HISTORY: Back pain TECHNIQUE: 3 views FINDINGS: There is a mild lumbar levoscoliosis. There is minimal subluxation at L4-5. There is narrow ing at L5-S1 disc space. No compression fracture. Sacroiliac joints are intact. IMPRESSION: Mild spondylotic changes and levoscoliosis. Degenerative minimal subluxation at L4-5. No fracture seen.
[2022-04-13 20:30] LABS: Appearance,Urine Clear (Clear); Bilirubin,Urine Negative (Negative); Blood,Urine Negative (Negative); Color,Urine Light Yellow; Glucose,Urine (UA) 1+ (Negative); Ketones,Urine Negative (Negative); Leukocyte Esterase,Urine Negative (Negative); Nitrite,Urine Negative (Negative); Protein,Urine Negative (Negative); Urobilinogen,Urine <2.0 mg/dL (<2.0)
--- NOTE | 2022-04-13 20:57 | ED ---
Back Pain HPI - General Chief Complaint: Back Pain/Injury Stated Complaint: Lower back pain Time Seen by Provider: 04/13/22 19:08 Source: patient Limitations: no limitations - History of Present Illness Initial Comments: Patient is a 77-year-old female presenting with chief complaint of lower back pain. Patient states pain has been ongoing for the last week. Pain has been shifting more so to her right side. Patient has history of chronic back pain, currently sees Dr. Clarke. No dysuria, hematuria, urgency, frequency. No abdominal pain. No chest pain or difficulty breathing. No nausea or vomiting. Patient has history of mild urinary incontinence, no changes. No loss of bowel control. No saddle paresthesia. - Related Data Home Medications Medication Instructions Recorded Confirmed Albuterol Inhaler [Ventolin Hfa 1 puff INHALATION RT-Q4H PRN 03/30/20 12/13/20 Inhaler] Atorvastatin [Lipitor] 20 mg PO HS 03/30/20 12/13/20 Cholecalciferol [Vitamin D3 (25 1,000 unit PO BID 03/30/20 12/13/20 Mcg = 1000 Iu)] Dulaglutide [Trulicity] 1.5 mg SQ BAKER 03/30/20 12/13/20 Fluticasone Nasal [place] [Flonase 1 spr EA NOSTRIL DAILY PRN 03/30/20 12/13/20 Nasal [place]] Insulin Detemir [Levemir Flextouch 40 units SQ HS 03/30/20 12/13/20 Pen] Lansoprazole 30 mg PO DAILY 03/30/20 12/13/20 Lisinopril-Hctz 20-25 mg 1 tab PO DAILY 03/30/20 12/13/20 [Zestoretic 20-25] Meclizine [Antivert] 12.5 mg PO HS 03/30/20 12/13/20 Metoprolol Succinate [Toprol XL] 50 mg PO BID 03/30/20 12/13/20 Occular Nutrition [place] 2 tab PO BID 03/30/20 12/13/20 Rivaroxaban [Xarelto] 20 mg PO HS 03/30/20 12/13/20 Tiotropium 18 Mcg/Puff [Spiriva] 1 puff INHALATION DAILY PRN 03/30/20 12/13/20 metFORMIN HCL [Glucophage] 2,000 mg PO HS 03/30/20 12/13/20 Fexofenadine/Pseudoephedrine 1 tab PO DAILY 12/13/20 12/13/20 [Pallavi-D 24 Hour Tablet] Insulin Aspart (Niacinamide) 0 units SQ AC-TID 12/13/20 12/13/20 [Fiasp 100 Unit/ml Flextouch Pen] [place]-3 Acid Ethyl Esters [Lovaza] 2 gm PO BID 12/13/20 12/13/20 Previous Rx's Medication Instructions Recorded Docusate [Colace] 100 mg PO DAILY #30 cap 12/19/20 HYDROcodone/APAP 7.5-325MG [[place] 1 each PO Q6HR PRN #28 tab 12/19/20 7.5] Allergies Allergy/AdvReac Type Severity Reaction Status Date / Time No Known Allergies Allergy Verified 12/17/20 06:39 Review of Systems ROS Statement: Those systems with pertinent positive or pertinent negative responses have been documented in the HPI. ROS Other: All systems not noted in ROS Statement are negative. Past Medical History Past Medical History: Atrial Fibrillation, Diabetes Mellitus, Osteoarthritis (OA) Additional Past Medical History / Comment(s): freestyle kathia monitor on rt arm for blood sugars, chronic nasal congestion and sinus issues, "weak bronchial system", hiatal hernia, barretts esophagus, constipation, "rosalva gallbladder", elevated triglycerides, urinary leakage-wears depends, peritonitis after ruptured ovarian cyst, pt thinks she has an infection under her thumb nail- swells and warm to touch History of Any Multi-Drug Resistant Organisms: None Reported Past Surgical History: Hysterectomy Additional Past Surgical History / Comment(s): LUMPECTOMY Past Anesthesia/Blood Transfusion Reactions: Motion Sickness Past Psychological History: No Psychological Hx Reported Smoking Status: Second hand smoke exposure Past Alcohol Use History: None Reported - Past Family History Mother Family Medical History: Cancer Additional Family Medical History / Comment(s): pancreatic General Exam Limitations: no limitations General appearance: alert, in no apparent distress Head exam: Present: atraumatic, normocephalic, normal inspection Eye exam: Present: normal appearance Neck exam: Present: normal inspection Respiratory exam: Present: normal lung sounds bilaterally. Absent: respiratory distress, wheezes, rales, rhonchi, stridor Cardiovascular Exam: Present: regular rate, normal rhythm, normal heart sounds. Absent: systolic murmur, diastolic murmur, rubs, gallop, clicks GI/Abdominal exam: Present: soft. Absent: distended, tenderness, guarding, rebound, rigid Back exam: Present: normal inspection. Absent: CVA tenderness (R), CVA tenderness (L) Neurological exam: Present: alert, oriented X3, CN II-XII intact Psychiatric exam: Present: normal affect, normal mood Skin exam: Present: warm, dry, intact, normal color. Absent: rash Course Vital Signs 04/13/22 04/13/22 17:57 21:00 Temperature 98 F Pulse Rate 95 92 Respiratory 16 18 Rate Blood Pressure 192/81 162/81 O2 Sat by Pulse 99 96 Oximetry Medical Decision Making - Medical Decision Making Was pt. sent in by a medical professional or institution (, PA, STATUS CONTROLLER, urgent care, hospital, or retirement...) When possible be specific @ -No Did you speak to anyone other than the patient for history (EMS, parent, family, police, friend...)? What history was obtained from this source @ -No Did you review nursing and triage notes (agree or disagree)? Why? @ -I reviewed and agree with nursing and triage notes Were old charts reviewed (outside hosp., previous admission, EMS record, old EKG, old radiological studies, urgent care reports/EKG's, retirement records)? Report findings @ -No old charts were reviewed Differential Diagnosis (chest pain, altered mental status, abdominal pain women, abdominal pain men, vaginal bleeding, weakness, fever, dyspnea, syncope, headache, dizziness, GI bleed, back pain, seizure, CVA, palpatations, mental health)? @ - [facility] Differential Back Pain: Strain, zoster, cauda equina syndrome, fracture, subluxation, disc herniation, DJD, spinal stenosis, pyelonephritis, kidney stone this is not meant to be an all-inclusive list. EKG interpreted by me (3pts min.). @ -None X-rays interpreted by me (1pt min.). @ -No, radiologist report reviewed. Negative KUB x-ray and lumbar spine x-ray CT interpreted by me (1pt min.). @ -None done U/S interpreted by me (1pt. min.). @ -None done What testing was considered but not performed or refused? (CT, X-rays, U/S, labs)? Why? @ -None What meds were considered but not given or refused? Why? @ -None Did you discuss the management of the patient with other professionals (professionals i.e. , PA, STATUS CONTROLLER, lab, RT, psych nurse, social worker health services, peoplesoft taleo manager, teacher, chief information security officer, case therapist)? Give summary @ -No Was smoking cessation discussed for >3mins.? @ -No Was critical care preformed (if so, how long)? @ -No Were there social determinants of health that impacted care today? How? (Homelessness, low income, unemployed, alcoholism, drug addiction, transportation, low edu. Level, literacy, decrease access to med. care, intermediate, rehab)? @ -No Was there de-escalation of care discussed even if they declined (Discuss DNR or withdrawal of care, Hospice)? DNR status @ -No What co-morbidities impacted this encounter? (DM, HTN, Smoking, COPD, CAD, Cancer, CVA, ARF, Chemo, Hep., AIDS, mental health diagnosis, sleep apnea, morbid obesity)? @ -None Was patient admitted / discharged? Hospital course, mention meds given and route, prescriptions, significant lab abnormalities, going to OR and other pertinent info. @ Patient is a 77-year-old female presenting with chief complaint of back pain that is worse on the right side. History of chronic back pain. Patient wants to make sure she does not have a kidney infection. Physical examination is unremarkable, no CVA tenderness. Patient is afebrile., No abdominal tenderness. No red flag symptoms. Urine shows 1+ glucose, no blood or leukocytes. No leukocytosis or anemia. Glucose is 276, patient has diabetes. X-rays of the lumbar spine and KUB x-ray show no acute process, lumbar spine x- ray does show chronic changes. Patient was given pain medication, on reassessment she reports improvement in her symptoms. This is likely a flareup of her chronic back pain. Educated patient on supportive treatment at home and instructed her to follow up with orthopedist. Follow-up with PCP. Report back to ER with any new or worsening symptoms. Discussed return parameters and answered all questions. Patient conveyed verbal understanding and agreed to the plan. I discussed this case in detail with my attending Dr. Garza Undiagnosed new problem with uncertain prognosis? @ -No Drug Therapy requiring intensive monitoring for toxicity (Heparin, Nitro, Insulin, Cardizem)? @ -No Were any procedures done? @ -No Diagnosis/symptom? @ -Mechanical back pain Acute, or Chronic, or Acute on Chronic? @ -Acute on chronic Uncomplicated (without systemic symptoms) or Complicated (systemic symptoms)? @ -Uncomplicated Side effects of treatment? @ -No Exacerbation, Progression, or Severe Exacerbation? @ -No Poses a threat to life or bodily function? How? (Chest pain, [place], SC, pneumonia, PE, COPD, DKA, ARF, appy, cholecystitis, CVA, Diverticulitis, Homicidal, Suicidal, threat to staff... and all critical care pts) @ -No - Lab Data Result diagrams: 04/13/22 19:43 04/13/22 19:43 Lab Results 04/13/22 04/13/22 04/13/22 Range/Units 19:43 19:43 19:43 WBC 7.9 (3.8-10.6) k/uL RBC 4.37 (3.80-5.40) m/uL Hgb 12.9 (11.4-16.0) gm/dL Hct 38.1 (34.0-46.0) % MCV 87.1 (80.0-100.0) fL MCH 29.5 (25.0-35.0) pg MCHC 33.9 (31.0-37.0) g/dL RDW 13.5 (11.5-15.5) % Plt Count 291 (150-450) k/uL MPV 7.1 Neutrophils % 77 % Lymphocytes % 12 % Monocytes % 6 % Eosinophils % 2 % Basophils % 1 % Neutrophils # 6.1 (1.3-7.7) k/uL Lymphocytes # 1.0 (1.0-4.8) k/uL Monocytes # 0.5 (0-1.0) k/uL Eosinophils # 0.2 (0-0.7) k/uL Basophils # 0.1 (0-0.2) k/uL Sodium 135 L (137-145) mmol/L Potassium 4.2 (3.5-5.1) mmol/L Chloride 96 L (98-107) mmol/L Carbon Dioxide 31 H (22-30) mmol/L Anion Gap 8 mmol/L BUN 14 (7-17) mg/dL Creatinine 0.75 (0.52-1.04) mg/dL Est GFR (CKD-EPI)AfAm 88 (>60 ml/min/1.73 sqM) Est GFR (CKD-EPI)NonAf 77 (>60 ml/min/1.73 sqM) Glucose 276 H (74-99) mg/dL Plasma Lactic Acid Sly (0.7-2.0) mmol/L Calcium 9.6 (8.4-10.2) mg/dL Total Bilirubin 1.0 (0.2-1.3) mg/dL AST 31 (14-36) U/L ALT 32 (4-34) U/L Alkaline Phosphatase 89 (38-126) U/L Total Protein 7.0 (6.3-8.2) g/dL Albumin 4.4 (3.5-5.0) g/dL Urine Color Light Yellow Urine Appearance Clear (Clear) Urine pH 7.0 (5.0-8.0) Ur Specific [place] 1.010 (1.001-1.035) Urine Protein Negative (Negative) Urine Glucose (UA) 1+ H (Negative) Urine Ketones Negative (Negative) Urine Blood Negative (Negative) Urine Nitrite Negative (Negative) Urine Bilirubin Negative (Negative) Urine Urobilinogen <2.0 (<2.0) mg/dL Ur Leukocyte Esterase Negative (Negative) 04/13/22 Range/Units 19:43 WBC (3.8-10.6) k/uL RBC (3.80-5.40) m/uL Hgb (11.4-16.0) gm/dL Hct (34.0-46.0) % MCV (80.0-100.0) fL MCH (25.0-35.0) pg MCHC (31.0-37.0) g/dL RDW (11.5-15.5) % Plt Count (150-450) k/uL MPV Neutrophils % % Lymphocytes % % Monocytes % % Eosinophils % % Basophils % % Neutrophils # (1.3-7.7) k/uL Lymphocytes # (1.0-4.8) k/uL Monocytes # (0-1.0) k/uL Eosinophils # (0-0.7) k/uL Basophils # (0-0.2) k/uL Sodium (137-145) mmol/L Potassium (3.5-5.1) mmol/L Chloride (98-107) mmol/L Carbon Dioxide (22-30) mmol/L Anion Gap mmol/L BUN (7-17) mg/dL Creatinine (0.52-1.04) mg/dL Est GFR (CKD-EPI)AfAm (>60 ml/min/1.73 sqM) Est GFR (CKD-EPI)NonAf (>60 ml/min/1.73 sqM) Glucose (74-99) mg/dL Plasma Lactic Acid Sly 1.9 (0.7-2.0) mmol/L Calcium (8.4-10.2) mg/dL Total Bilirubin (0.2-1.3) mg/dL AST (14-36) U/L ALT (4-34) U/L Alkaline Phosphatase (38-126) U/L Total Protein (6.3-8.2) g/dL Albumin (3.5-5.0) g/dL Urine Color Urine Appearance (Clear) Urine pH (5.0-8.0) Ur Specific [place] (1.001-1.035) Urine Protein (Negative) Urine Glucose (UA) (Negative) Urine Ketones (Negative) Urine Blood (Negative) Urine Nitrite (Negative) Urine Bilirubin (Negative) Urine Urobilinogen (<2.0) mg/dL Ur Leukocyte Esterase (Negative) Disposition Clinical Impression: Mechanical back pain Disposition: HOME SELF-CARE Condition: Good Instructions (If sedation given, give patient instructions): Acute Low Back Pain (ED) Additional Instructions: Follow-up with PCP and your orthopedist. Report back to ER with any new or worsening symptoms. Take Motrin and Tylenol as needed for pain control. Use heat and ice as needed for pain control. Is patient prescribed a controlled substance at d/c from ED?: No Referrals: Aniya Dietz MD [Primary Care Provider] - 1-2 days Jose Antonio Clarke DO [Doctor of Osteopathic Medicine] - 1-2 days Time of Disposition: 20:56
[2022-04-13 21:09] VITALS: BP 162/81; PULSE 92; RESP 18
== END 2022-04-13 21:23 | disposition home or self-care (01) ==
LOC: EC 17:15
DX: M54.50 Low back pain, unspecified (principal); I48.91 Unspecified atrial fibrillation; E11.9 Type 2 diabetes mellitus without complications; M19.90 Unspecified osteoarthritis, unspecified site; Z77.22 Contact with and (suspected) exposure to environmental tobacco smoke (acute) (chronic); Z79.4 Long term (current) use of insulin; Z79.84 Long term (current) use of oral hypoglycemic drugs; Z79.899 Other long term (current) drug therapy
CPT/HCPCS: 36415; 80053; 83605; 85025; 81003; 72100; 74018; 99284; 96374; 96361 ×2; J1885

== ENCOUNTER → 2023-12-16 | Outpatient (CLI) | payer MEDICARE | END | disposition home or self-care (01) | LOC: LABPAT 15:27 | PROVIDERS: ATTEND Orthopaedic Surgery | DX: M17.12 Unilateral primary osteoarthritis, left knee (principal) | CPT/HCPCS: 87070 ==

== ENCOUNTER 2023-12-21 05:37 | Day surgery (SDC) | payer MEDICARE ==
[2023-12-16 10:12] VITALS: BMI 28.5
--- NOTE | 2023-12-17 13:42 | P.HPOR ---
History of Present Illness H&P Date: 12/17/23 Chief Complaint: Left knee pain The patient is a 78-year-old retired female who presents with progressive left knee pain for the past several years worsening over the past 6 months. She is having pain with weightbearing activities along with stiffness and giving way. She tried medications in addition to injections with only temporary partial relief. She does use a walker. She is having night symptoms. Review of Systems per HPI Past Medical History Past Medical History: Atrial Fibrillation, COPD, Diabetes Mellitus, Hyperlipidemia, Hypertension, Osteoarthritis (OA), Sleep Apnea/CPAP/BIPAP Additional Past Medical History / Comment(s): hiatal hernia, barretts esophagus, "rosalva gallbladder", urinary leakage-wears depends, hospitalized in past for shingles, vertigo, neuropathy LE History of Any Multi-Drug Resistant Organisms: None Reported Past Surgical History: Breast Surgery, Hysterectomy, Joint Replacement Additional Past Surgical History / Comment(s): left breast lumpectomy, ruptured ovarian cyst that led to emergency hysterectomy, joe. cataracts removed, right knee replacement Past Anesthesia/Blood Transfusion Reactions: No Reported Reaction, Motion Sickness Additional Past Anesthesia/Blood Transfusion Reaction / Comment(s): vertigo i ssues regularly Past Psychological History: No Psychological Hx Reported Smoking Status: Never smoker Past Alcohol Use History: None Reported Past Drug Use History: None Reported - Past Family History Mother Family Medical History: Cancer Additional Family Medical History / Comment(s): pancreatic Medications and Allergies Home Medications Medication Instructions Recorded Confirmed Type Albuterol Inhaler [Ventolin Hfa 1 puff INHALATION RT-Q4H PRN 03/30/20 12/16/23 History Inhaler] Atorvastatin [Lipitor] 20 mg PO HS 03/30/20 12/16/23 History metFORMIN HCL [Glucophage] 1,000 mg PO HS 03/30/20 12/16/23 History Fexofenadine/Pseudoephedrine 1 tab PO QAM 12/13/20 12/16/23 History [Pallavi-D 24 Hour Tablet] Insulin Aspart (Niacinamide) 0 units SQ AC-TID 12/13/20 12/16/23 History [Fiasp 100 Unit/ml Flextouch Pen] [place]-3 Acid Ethyl Esters [Lovaza] 2 gm PO BID 12/13/20 12/16/23 History Acetaminophen-Codeine 300-30mg 1 tab PO Q6H PRN 12/16/23 12/16/23 History [Tylenol w/codeine #3] Insulin Degludec [Tresiba] 24 units SQ HS 12/16/23 12/16/23 History Lansoprazole [Prevacid] 30 mg PO QAM 12/16/23 12/16/23 History Losartan-Hctz 50-12.5 mg [Hyzaar 1 tab PO QAM 12/16/23 12/16/23 History 50-12.5] Meclizine [Antivert] 12.5 mg PO HS 12/16/23 12/16/23 History Metoprolol Tartrate [Lopressor] 50 mg PO BID 12/16/23 12/16/23 History Nf-Neuro Xt Supplement 1 tab PO HS 12/16/23 12/16/23 History Rivaroxaban [Xarelto] 15 mg PO HS 12/16/23 12/16/23 History Semaglutide [Ozempic] 2 mg SQ TH 12/16/23 12/16/23 History metFORMIN HCL [Glucophage] 500 mg PO QAM 12/16/23 12/16/23 History Allergies Allergy/AdvReac Type Severity Reaction Status Date / Time No Known Allergies Allergy Verified 12/16/23 09:31 Physical Examination - Knee left Appearance: effusion Effusion grade: grade 1 Varus alignment in stance: 10 degrees Tenderness with palpation: anterior, medial ROM: extension: -20 degrees ROM: flexion: 90 degrees Crepitus with motion: Yes Strength: extension: 5/5 Strength: flexion: 5/5 Meniscal tests: medial meniscal tests: positive, medial joint line pain: positive Results Patient is a well-developed well-nourished female approximately 5 foot 6, 280 pounds of endomorphic habitus. HEENT exam is nonfocal, neck is supple. She has painless passive motion of the left hip. Straight leg raise negative. She is tender about the medial joint line of the left knee. Collaterals are stable, Isadora was negative, Garland's is equivocal. Her distal neurovascular appears intact in the left lower extremity. - Diagnostic results Knee x-ray: image reviewed (X-rays of the left knee in the office show severe medial and patellofemoral compartment joint space narrowing with [id number] changes and subchondral sclerosis.) Assessment and Plan Assessment: Left knee severe medial and patellofemoral compartment osteoarthrosis History of diabetes Atrial fibrillation Plan: I talked to the patient at length regarding her condition along with treatment options. At this point she is quite symptomatic having pain and mechanical symptoms related to her left knee osteoarthrosis despite previous conservative measures. After a thorough discussion she opts to proceed with surgery. We'll plan to proceed with left total knee arthroplasty. Risks and benefits were discussed at length in layman's terms. We will institute DVT prophylaxis postoperatively.
[~2023-12-21 05:37] MED LIST changes: -ACETAMINOPHEN TAB 500 MG TAB PO PRN; -DEXAMETHASONE SOD PHOSPHATE 4 MG/ML 1 ML VIAL IV ONE; -MELOXICAM 7.5 MG TAB PO PRN; -ONDANSETRON 4 MG/2 ML VIAL IVP ONE; -ROPIVACAINE/EPI/CLONIDINE/KET 50 ML SYRINGE MISCELLANE PRN; +TRANEXAMIC 1,000 MG/100ML-NACL 1,000 MG in SALINE 1 100ML.BAG IVPB PRN; -TRANEXAMIC ACID 1,000 MG in SODIUM CHLORIDE 0.9% 100 ML IVPB PRN; -ceFAZolin 3 GM in SODIUM CHLORIDE 0.9% 100 ML IVPB PRN
[2023-12-21 06:48] LABS: Glucose,Whole Blood 185 mg/dL (70-110)
[2023-12-21] MEDS: LACTATED RINGERS 1,000 ML IV SCH (07:00)
[2023-12-21] MEDS ORDERED: HYDROmorphone 0.5 MG/0.5 ML SYRINGE IVP PRN (07:00)
[2023-12-21] MEDS: ONDANSETRON 4 MG/2 ML VIAL IVP ONE (07:05)
[2023-12-21] MEDS: DEXAMETHASONE SOD PHOSPHATE 4 MG/ML 1 ML VIAL IV ONE (07:05)
[2023-12-21] MEDS: ACETAMINOPHEN TAB 500 MG TAB PO PRN (07:05)
[2023-12-21] MEDS: MELOXICAM 7.5 MG TAB PO PRN (07:05)
[2023-12-21] MEDS: MIDAZOLAM 2 MG/2 ML VIAL IV PRN (07:14)
[2023-12-21] MEDS ORDERED: MIDAZOLAM 2 MG/2 ML VIAL ONE (07:25)
[2023-12-21] MEDS ORDERED: PHENYLEPHRINE 10 MG/ML VIAL ONE (07:25)
[2023-12-21] MEDS ORDERED: ROPIVACAINE 5 MG/ML 30 ML VIAL ONE (07:25)
[2023-12-21] MEDS ORDERED: TRANEXAMIC 1,000 MG/100ML-NACL PREMIX BAG ONE (07:25)
[2023-12-21] MEDS ORDERED: DEXAMETHASONE SOD PHOSPHATE 4 MG/ML 1 ML VIAL ONE (07:25)
[2023-12-21] MEDS ORDERED: diphenhydrAMINE 50 MG/ML 1 ML VIAL ONE (07:25)
[2023-12-21] MEDS ORDERED: PROPOFOL 10 MG/ML 20 ML VIAL IV ONE (07:25)
[2023-12-21] MEDS ORDERED: ePHEDrine 50 MG/ML 1 ML VIAL ONE (07:25)
[2023-12-21] MEDS ORDERED: KETAMINE HCL IN 0.9 % NACL 50 MG/5 ML SYRINGE ONE (07:25)
[2023-12-21] MEDS: LACTATED RINGERS 1,000 ML IV ONE ×2 (07:30→09:01)
[2023-12-21] MEDS ORDERED: MAGNESIUM HYDROXIDE 2,400 MG/30 ML CUP PO PRN (09:26)
[2023-12-21] MEDS ORDERED: hydrOXYzine pamoate 25 MG CAP PO PRN (09:26)
[2023-12-21] MEDS ORDERED: NALOXONE 0.4 MG/ML 1 ML VIAL IV PRN (09:26)
--- NOTE | 2023-12-21 09:45 | P.OP ---
Date of Procedure: 12/21/23 Preoperative Diagnosis: Left knee severe tricompartmental osteoarthrosis Postoperative Diagnosis: Same Procedure(s) Performed: Left total knee arthroplastycementedposterior stabilized Implants: DePuy attune size 6 narrow cemented femoral component, size 5 cemented tibial component with a 14 x 50 mm stem, 9 mm articular surface, 38 mm cemented patellar component. This is a posterior stabilized implant. Anesthesia: regional, spinal Surgeon: Natan Bunch [employer] Chief #1: Pasha Aguilar Estimated Blood Loss (ml): 50 Pathology: none sent Condition: stable Disposition: PACU Indications for Procedure: The patient is a 78-year-old female who presents with progressive left knee pain secondary to osteoarthrosis despite conservative measures. A discussion of the risks and benefits of operative intervention versus continued conservative measures was made with the patient. She opted proceed with surgery. Operative risks include infection, neurovascular injury, development of blood clots, fracture, possible component loosening/failure and possible need for subsequent procedures was discussed. Informed consent was obtained. Operative Findings: As below Description of Procedure: The patient was brought to the operating room, and after induction of spinal anesthesia the left lower extremity was prepped and draped in a normal fashion. The tourniquet was inflated to 270 mm marker. A longitudinal incision extending 3 finger breaths above the superior pole of patella extending to the medial aspect the tibial tubercle was then made. The skin and subcutaneous tissues w ere divided sharply. Electrocautery was used for hemostasis. A medial parapatellar arthrotomy was performed. The medial soft tissues to include the superficial and deep portions of the medial collateral ligament were elevated subperiosteally. The patella was everted. A portion of the retropatellar fat pad was excised sharply. The anterior cruciate ligament was sacrificed. Blunt retractors were placed. A starting hole was made in the distal femur 1 cm anterior to the posterior cruciate ligament origin. An intramedullary femoral guide was then inserted planning on 5 valgus distal cut with 9 mm distal resection. The cutting block was pinned in place. The distal cut was then made. The posterior referencing sizing guide was utilized. I felt size 6 narrow was most appropriate. 3 of external rotation was built into the system and verified off the trans-epicondylar axis and the posterior condyles. The cutting block was pinned in place. The anterior, posterior, and chamfer cuts then made. Bone fragments were removed. The intercondylar guide was placed and the notch cut was made with a sagittal saw. The bone block was removed in one fragment. The trial component was then placed. There is good anterior to posterior and medial to lateral fit. The distal peg holes were drilled. The trial component was removed. Attention was then paid towards preparing the proximal tibia. An extra medullary guide was utilized in line with the tibial shaft and second metatarsal distally. I planned on 2 mm resection from the medial compartment. The cutting block was pinned in place. The proximal tibial cut was then made. The bone was removed in one fragment. The remnants of the medial and lateral menisci were excised at the capsular junction with electrocautery. The tibia sized most appropriately at size 5. The trial femoral and tibial components were placed along with a 9 mm articular surface. I was able to obtain full flexion and extension with internal and external rotation. After several flexion and extension cycles, the tibial rotation was marked with electrocautery line with the medial one third of the tibial tubercle. Attention was then paid towards preparing the patella. A patella reamer was utilized taking stem to 14 mm of bone stock. A good flush cut was made. The patella sized most appropriately 38 mm. The peg holes were drilled. The trial components placed. I had good patellofemoral tracking with no hands technique. The trial components were then removed. The tibia was prepared in the appropriate rotation with appropriate drill and keel punch planning on a 14 x 50 mm stem. The posterior osteophytes were removed with a curved osteotome. The flexion and extension gaps were checked and felt to be symmetric at 9 mm. A trial components were then removed. The bony surfaces were prepared with pulsatile lavage and dried. The tibial component was then cemented place was fully seated. Excess cement was removed. The femoral component cemented place and was fully seated. Excess cement was removed. The trial 9 mm articular surface was placed and the knee was put in full extension. The patella component was cemented place. After the cement had sufficiently hardened, the knee was again taken through a range of motion. Again I was able to obtain full flexion and extension with varus and valgus stress. The trial 9 mm articular surface was removed and the final one inserted. This was fully seated. Care was taken to avoid any soft tissue interposition. Pulsatile lavage was again utilized. The medial parapatellar arthrotomy was closed with #2 Ethibond suture. The tourniquet was deflated with approximately 60 minutes total tourniquet time. Final hemostasis was obtained with the cautery. There was minimal bleeding therefore a deep drain was not placed. The subcutaneous tissues were reapproximated with interrupted 2-0 Vicryl sutures. The skin was reapproximated with 3-0 subcuticular strata fix suture. Skin tape and adhesive was applied. A sterile dressing was applied. The patient was awoken from sedation and transferred to recovery room in good condition. Blood loss was estimated at 50 mL. No complications were incurred. Sponge and needle counts were correct at the end of the case. Pasha MELO assisted during the major components of this case to include exposure, bone resection, implantation, and closure.
[2023-12-21] MEDS: ROPIVACAINE 1,100 MG, SODIUM CHLORIDE 0.9% 500 ML 330 ML, EMPTY PAIN BALL 1 EACH MISCELLANE PRN (10:04)
[2023-12-21 10:28] LABS: Glucose,Whole Blood 207 mg/dL (70-110)
--- NOTE | 2023-12-21 11:10 | XR ---
EXAMINATION TYPE: XR knee limited LT DATE OF EXAM: 12/21/2023 9:59 AM CLINICAL INDICATION: Female, 78 years old with history of Evaluation for Postop abnormality and align ment; [facility] COMPARISON: None. TECHNIQUE: XR knee limited LT; examined in Frontal, lateral projections. FINDINGS: Status post total knee arthroplasty changes with hardware in appropriate alignment and in tact. No evidence of fracture. Subcutaneous lucencies and lucencies within the joint consistent with surgical changes. IMPRESSION: Status post total knee arthroplasty changes with hardware intact and appropriate alignment. No fractu res identified. [facility], , 12/21/2023 11:08 AM
[2023-12-21] MEDS: HYDROcodone/APAP 7.5-325MG 1 EACH TAB PO PRN (11:13)
--- NOTE | 2023-12-21 11:40 | P.ANPRN ---
Procedure Note - Anesthesia - Nerve Block Performed Left Adductor Canal Infusion Time Out Performed: Yes Date of Procedure: 12/21/23 Procedure Start Time: : Procedure Stop Time: : Location of Patient: PreOp Indication: Acute Post-Operative Pain, Requested by Surgeon Sedation Type: Sedate with meaningful contact maintained Preparation: Sterile Prep Position: Supine Catheter: Indwelling Needle Types: Pajunk Needle Gauge: 21 Ultrasound used to visualize needle placement: Yes Ultrasound used to observe medication spread: Yes Blood Aspirated: No Pain Paresthesia on Injection Noted: No Resistance on Injection: Normal Image Stored and Saved: Yes Events: Uneventful and Well Tolerated (Ropivacaine 0.5% 20 cc plus dexamethasone 4 mg)
--- NOTE | 2023-12-21 11:43 | P.ANPRN ---
Procedure Note - Anesthesia - Nerve Block Performed Left iPack Single Time Out Performed: Yes Date of Procedure: 12/21/23 Procedure Start Time: Procedure Stop Time: Location of Patient: PreOp Indication: Acute Post-Operative Pain, Requested by Surgeon Sedation Type: Sedate with meaningful contact maintained Preparation: Sterile Prep Position: Supine Needle Types: Pajunk Needle Gauge: 21 Ultrasound used to visualize needle placement: Yes Ultrasound used to observe medication spread: Yes Blood Aspirated: No Pain Paresthesia on Injection Noted: No Resistance on Injection: Normal Image Stored and Saved: Yes Events: Uneventful and Well Tolerated (Ropivacaine 0.5% 25 cc plus dexamethasone 4 mg)
[2023-12-21 14:36] LABS: Glucose,Whole Blood 472 mg/dL (70-110)
[2023-12-21] MEDS: INSULIN ASPART (NovoLOG) 100 UNIT/ML VIAL SQ ONE (14:38)
[2023-12-21] MEDS ORDERED: ALBUTEROL NEBULIZED 2.5 MG/3 ML INHALATION PRN (15:32)
[2023-12-21] MEDS ORDERED: DEXTROSE 50% SYRINGE 50 ML IVP PRN ×2 (15:33)
[2023-12-21 16:19] LABS: Glucose,Whole Blood 382 mg/dL (70-110)
[2023-12-21] MEDS: HYDROmorphone 0.5 MG/0.5 ML SYRINGE IVP PRN (16:21)
[2023-12-21] MEDS: RIVAROXABAN 15 MG TAB PO SCH (16:22)
--- NOTE | 2023-12-21 16:38 | P.CONS ---
History of Present Illness - Reason for Consult Consult date: 12/21/23 Medical Management Requesting physician: Natan Bunch - History of Present Illness History of Presenting Illness: Patient is a very pleasant 78-year-old female with a past medical history of atrial fibrillation on anticoagulation with Xarelto, hypertension, hyperlipidemia, insulin-dependent diabetes mellitus, obstructive sleep apnea CPAP dependent nightly, GERD with Montalvo's esophagus, and osteoarthrosis. Patient is currently admitted under orthopedic surgery team status post elective left total knee arthroplasty secondary to severe left knee tricompartmental osteoarthrosis. Surgical procedure was completed by Dr. Bunch. We were consulted for medical management throughout hospitalization. Patient was seen and fully evaluated in room 475. At this time patient currently reports moderate to severe postoperative pain in left knee. She carlos alberto es having any postoperative nausea or vomiting and is tolerating oral intake well. She denies any other complaints including headache, lightheadedness, dizziness, chest pain, palpitations, shortness of breath, cough or congestion, or experiencing any numbness/tingling/focal weakness in her extremities. Patient does report not taking her morning medications including metoprolol and insulin stating she forgot prior to coming to surgery. Review of systems: Pertinent positives and negatives as discussed in HPI, a complete review of systems was performed and all other systems are negative. Physical exam: Vital signs reviewed and stable. General: Nontoxic, no distress and appears stated age. Derm: Skin warm and dry, normal coloration for ethnicity. Head: Atraumatic, normocephalic and symmetric. Eyes: EOM's intact, no lid lag, and anicteric sclera Mouth: no lip lesions, mucus membranes moist Cardiovascular: Irregularly irregular, systolic murmur, positive posterior tibial pulses bilaterally, and cap refill < 2 seconds. Lungs: Respirations even, regular, and unlabored on room air. Lungs CTA joe aterally, no rhonchi, no rales, no wheezing, and no accessory muscle usage. Abdominal: soft, nontender to palpation, no guarding, no appreciable organomegaly Ext: No gross muscle atrophy, no edema, no contractures. Movement and sensation intact. Postoperative dressing left knee in place along with [place]coe wrap and ice pack. Neuro: Speech clear, face symmetrical and CN II-XII grossly intact with no noted focal neuro deficits Psych: Alert and oriented to person, place, time, and situation. Appropriate and pleasant affect. Assessment and Plan of Care: Status post left total knee arthroplasty Management per primary admitting orthopedic surgery team including DVT prophylaxis, pain management, wound/dressing management, weightbearing, and PT/OT. Patient currently on DVT prophylaxis with Xarelto 15 mg daily. Insulin Dependent Diabetes Mellitus with hyperglycemia Blood glucose 472. Hold Ozempic and metformin. Order placed for patient to resume Levemir 24 units nightly along with NovoLog sliding scale. Patient also placed on glycemic protocol to monitor for signs of hypoglycemia. Follow-up on hemoglobin A1c. Paroxysmal atrial fibrillation, currently in atrial fibrillation with rate ranging between 90-100. Patient reports missing morning dose of metoprolol, rate ranging 90s to 100. Will give 1 dose of metoprolol 50 mg now. Order placed for telemetry monitoring. Continue Xarelto 15 mg daily and metoprolol 50 mg twice daily. Hypertension Monitor vital signs and continue daily medication regimen including losartan/hydrochlorothiazide 50-12.5 mg tablets daily and metoprolol 50 mg twice daily. Hyperlipidemia Continue daily medication regimen with atorvastatin 20 mg nightly. Data and imaging reviewed: Blood glucose elevated at 472. Patient did reports she ate an egg salad sandwich prior to having blood glucose levels checked. She was given 8 units of insulin, previous placed to reassess. Vital signs reviewed. Blood pressure 131/71, heart rate 94, respiratory rate 18, temp 97.5 F, and SpO2 of 95% on 2 L. Thank you for allowing us to participate in the care of this pleasant patient. Do not hesitate to contact us with questions. Someone can be reached from the [facility] hospitalist group all hours of the day at [phone] or via [employer]. Patient was seen independently by Nurse Practitioner. This document was prepared using [employer] dictation software. Please allow for errors in hospice care consultant while rare they do occur. .Abdon Dudley NP rendered care for this patient independently, reviewed the findings and plan as documented in the note above. I did not physically speak with or examine the patient on this date Past Medical History Past Medical History: Atrial Fibrillation, COPD, Diabetes Mellitus, Hyperlipidemia, Hypertension, Osteoarthritis (OA), Sleep Apnea/CPAP/BIPAP Additional Past Medical History / Comment(s): hiatal hernia, barretts esophagus, "rosalva gallbladder", urinary leakage-wears depends, hospitalized in past for shingles, vertigo, neuropathy LE History of Any Multi-Drug Resistant Organisms: None Reported Past Surgical History: Breast Surgery, Hysterectomy, Joint Replacement Additional Past Surgical History / Comment(s): left breast lumpectomy, ruptured ovarian cyst that led to emergency hysterectomy, joe. cataracts removed, right knee replacement, Left knee replacement. Past Anesthesia/Blood Transfusion Reactions: No Reported Reaction, Motion Sickness Additional Past Anesthesia/Blood Transfusion Reaction / Comm: vertigo issues regularly Past Psychological History: No Psychological Hx Reported Smoking Status: Never smoker Past Alcohol Use History: None Reported Past Drug Use History: None Reported - Past Family History Mother Family Medical History: Cancer Additional Family Medical History / Comment(s): pancreatic Medications and Allergies Home Medications Medication Instructions Recorded Confirmed Type Albuterol Inhaler [Ventolin Hfa 1 puff INHALATION RT-Q4H PRN 03/30/20 12/21/23 History Inhaler] Atorvastatin [Lipitor] 20 mg PO HS 03/30/20 12/21/23 History metFORMIN HCL [Glucophage] 1,000 mg PO HS 03/30/20 12/21/23 History Fexofenadine/Pseudoephedrine 1 tab PO QAM 12/13/20 12/21/23 History [Pallavi-D 24 Hour Tablet] Insulin Aspart (Niacinamide) 0 units SQ AC-TID 12/13/20 12/21/23 History [Fiasp 100 Unit/ml Flextouch Pen] [place]-3 Acid Ethyl Esters [Lovaza] 2 gm PO BID 12/13/20 12/21/23 History Acetaminophen-Codeine 300-30mg 1 tab PO Q6H PRN 12/16/23 12/21/23 History [Tylenol w/codeine #3] Insulin Degludec [Tresiba] 24 units SQ HS 12/16/23 12/21/23 History Lansoprazole [Prevacid] 30 mg PO QAM 12/16/23 12/21/23 History Losartan-Hctz 50-12.5 mg [Hyzaar 1 tab PO QAM 12/16/23 12/21/23 History 50-12.5] Meclizine [Antivert] 12.5 mg PO HS 12/16/23 12/21/23 History Metoprolol Tartrate [Lopressor] 50 mg PO BID 12/16/23 12/21/23 History Nf-Neuro Xt Supplement 1 tab PO HS 12/16/23 12/21/23 History Rivaroxaban [Xarelto] 15 mg PO HS 12/16/23 12/21/23 History Semaglutide [Ozempic] 2 mg SQ TH 12/16/23 12/21/23 History metFORMIN HCL [Glucophage] 500 mg PO QAM 12/16/23 12/21/23 History Allergies Allergy/AdvReac Type Severity Reaction Status Date / Time No Known Allergies Allergy Verified 12/21/23 06:21 Physical Exam Vitals: Vital Signs Temp Pulse Pulse Resp BP BP Pulse Ox 12/21/23 13:15 99 16 105/62 95 12/21/23 12:15 88 16 150/48 96 12/21/23 11:45 84 16 112/74 96 12/21/23 11:30 87 16 143/63 99 12/21/23 11:15 81 16 154/66 98 12/21/23 11:00 86 16 134/65 99 12/21/23 10:45 93 16 115/70 100 12/21/23 10:30 83 16 128/63 94 L 12/21/23 10:15 61 16 110/65 100 12/21/23 10:05 72 16 124/58 100 12/21/23 09:50 74 16 99/80 100 12/21/23 09:35 97 F L 91 16 112/63 96 12/21/23 07:29 75 16 138/88 98 12/21/23 06:30 98.3 F 82 18 164/70 97 Intake and Output 12/21/23 12/21/23 12/21/23 06:59 14:59 22:59 Intake Total 1600 Output Total 50 Balance 1550 Intake: IV 1600 Output: Estimated Blood Loss 50 Other: Weight 123.6 kg 123.6 kg Results CBC & Chem 7: 12/22/23 04:23 12/22/23 04:23 Labs: Abnormal Lab Results - Last 24 Hours (Table) 12/21/23 12/21/23 12/21/23 Range/Units 06:44 10:26 14:29 POC Glucose (mg/dL) 185 H 207 H 472 H (70-110) mg/dL
[2023-12-21] MEDS: METOPROLOL TARTRATE 50 MG TAB PO STA (17:15)
[2023-12-21] MEDS: INSULIN ASPART (NovoLOG) 100 UNIT/ML VIAL SQ SCH (17:17)
[2023-12-21 20:15] LABS: Glucose,Whole Blood 395 mg/dL (70-110)
[2023-12-21] MEDS: ATORVASTATIN 20 MG TAB PO SCH (21:01)
[2023-12-21] MEDS: INSULIN DETEMIR (LEVEMIR) 100 UNIT/ML SYR SQ SCH (21:07)
[2023-12-21] MEDS: PATIENT'S OWN (Omega-3 Acid Ethyl Esters [Lovaza] 1 GM Capsule) PO SCH (21:08)
[2023-12-21] MEDS: MECLIZINE 12.5 MG TAB PO SCH (21:08)
[2023-12-21] MEDS: SENNOSIDES-DOCUSATE SODIUM 1 EACH TAB PO SCH (21:08)
[2023-12-21] MEDS: METOPROLOL TARTRATE 50 MG TAB PO SCH (21:08)
[2023-12-22] MEDS: HYDROmorphone 0.5 MG/0.5 ML SYRINGE IVP PRN (00:15)
[2023-12-22 06:28] LABS: Glucose,Whole Blood 247 mg/dL (70-110)
--- NOTE | 2023-12-22 07:12 | P.PN ---
Progress Note - Text Progress Note Date: 12/22/23 The patient is doing well status post total knee replacement Postop day #1. Pa in is well controlled by a combination of local anesthetic infusion through the adductor canal catheter and oral analgesics. There are no signs of infection around the catheter skin entry site. The local anesthetic infusion will be continued as per protocol
[2023-12-22] MEDS: HYDROcodone/APAP 5-325MG 1 EACH TAB PO PRN (08:04)
[2023-12-22 08:45] LABS: HCT 36.5 % (37.2-46.3); MCHC 32.9 g/dL (32.0-37.0); MCV 88.2 FL (80.0-97.0); Mean Platelet Volume 9.5 FL (9.5-12.2); NRBC Per 100 WBC 0 X 10*3/uL (0.00-0.01); Platelet Count 373 X 10*3/uL (140-440); RBC 4.14 X 10*6/uL (4.10-5.20); RDW 12.5 % (11.5-14.5); WBC 12.99 X 10*3/uL (4.50-10.00)
[2023-12-22 08:46] LABS: Basophils # (A) 0.03 X 10*3/uL (0.00-0.10); Basophils % (A) 0.2 %; Eosinophils # (A) 0.01 X 10*3/uL (0.04-0.35); Eosinophils % (A) 0.1 %; Lymphocytes # (A) 1.95 X 10*3/uL (0.90-5.00); Monocytes # (A) 1.41 X 10*3/uL (0.20-1.00); Monocytes % (A) 10.9 %; Neutrophils # (A) 9.54 X 10*3/uL (1.80-7.70); Neutrophils % (A) 73.4 %
[2023-12-22 08:57] LABS: BUN/Creat Ratio 24.73 Ratio (12.00-20.00); Blood Urea Nitrogen 27.2 mg/dL (9.0-27.0); Calcium 9.3 mg/dL (8.7-10.3); Carbon Dioxide 22.9 mmol/L (21.6-31.8); Chloride 98 mmol/L (96-109); Glucose 240 mg/dL (70-110); Magnesium 1.7 mg/dL (1.5-2.4); Potassium 4.6 mmol/L (3.5-5.5); Sodium 133 mmol/L (135-145)
[2023-12-22] MEDS: LOSARTAN-HCTZ 50-12.5 MG 1 EACH TAB PO SCH (10:08)
[2023-12-22] MEDS: PANTOPRAZOLE 40 MG TABLET PO SCH (10:08)
[2023-12-22] MEDS: LORATADINE-PSEUDOEPH 5-120 MG 1 EACH TAB.ER.12H PO SCH (10:45)
[2023-12-22 11:20] LABS: Glucose,Whole Blood 288 mg/dL (70-110)
--- NOTE | 2023-12-22 12:28 | P.PN ---
Subjective Progress Note Date: 12/22/23 Principal diagnosis: Left knee osteoarthritis Patient was seen at bedside this morning sitting up in chair with dressing present over left knee. Patient says she did try to get up with therapy this morning and sat at the edge of the bed and once she tried to put weight on her left lower extremity she did have increased pain to the left knee and rated it as 8 out of 10. Patient says she normally wears depends at home. Patient hoping to go to [facility] for rehab upon discharge from the hospital. Patient denies any other issues at this time. Objective - Vital Signs Vital signs: Vital Signs Temp 98.1 F 12/22/23 07:27 Pulse 67 12/22/23 07:27 Resp 20 12/22/23 07:27 BP 117/75 12/22/23 07:27 Pulse Ox 95 12/22/23 02:03 FiO2 Intake & Output 12/21/23 12/22/23 12/22/23 18:59 06:59 18:59 Intake Total 1600 Output Total 50 1000 Balance 1550 -1000 Weight 123.6 kg Intake: IV 1600 Output: Urine 1000 Estimated Blood Loss 50 Other: Voiding Method External Catheter # Voids 2 - Exam Left knee: Incision is clean, dry, and intact. The exofin fusion tape is in good condition. There is minimal soft tissue swelling and ecchymosis surrounding the medial and lateral aspects of the incision. Calf is soft, no tenderness with palpation. Plantar flexion, dorsiflexion, EHL, FHL are intact. Sensory exam to light touch throughout the extremity is intact, dorsal pedis pulses 2+. - Labs CBC & Chem 7: 12/22/23 04:23 12/22/23 04:23 Labs: Abnormal Lab Results - Last 24 Hours (Table) 12/21/23 12/21/23 12/21/23 Range/Units 14:29 16:17 20:11 WBC (4.50-10.00) X 10*3/uL Hct (37.2-46.3) % Immature Gran # (0.00-0.04) X 10*3/uL Neutrophils # (1.80-7.70) X 10*3/uL Monocytes # (0.20-1.00) X 10*3/uL Eosinophils # (0.04-0.35) X 10*3/uL Sodium (135-145) mmol/L Anion Gap (4.00-12.00) mmol/L BUN (9.0-27.0) mg/dL Est GFR (CKD-EPI) (>=60) BUN/Creatinine Ratio (12.00-20.00) Ratio Glucose (70-110) mg/dL POC Glucose (mg/dL) 472 H 382 H 395 H (70-110) mg/dL Hemoglobin A1c (<=6.0) % 12/22/23 12/22/23 12/22/23 Range/Units 04:23 04:23 04:23 WBC 12.99 H (4.50-10.00) X 10*3/uL Hct 36.5 L (37.2-46.3) % Immature Gran # 0.05 H (0.00-0.04) X 10*3/uL Neutrophils # 9.54 H (1.80-7.70) X 10*3/uL Monocytes # 1.41 H (0.20-1.00) X 10*3/uL Eosinophils # 0.01 L (0.04-0.35) X 10*3/uL Sodium 133 L (135-145) mmol/L Anion Gap 12.10 H (4.00-12.00) mmol/L BUN 27.2 H (9.0-27.0) mg/dL Est GFR (CKD-EPI) 51 L (>=60) BUN/Creatinine Ratio 24.73 H (12.00-20.00) Ratio Glucose 240 H (70-110) mg/dL POC Glucose (mg/dL) (70-110) mg/dL Hemoglobin A1c 8.6 H (<=6.0) % 12/22/23 12/22/23 Range/Units 06:27 11:18 WBC (4.50-10.00) X 10*3/uL Hct (37.2-46.3) % Immature Gran # (0.00-0.04) X 10*3/uL Neutrophils # (1.80-7.70) X 10*3/uL Monocytes # (0.20-1.00) X 10*3/uL Eosinophils # (0.04-0.35) X 10*3/uL Sodium (135-145) mmol/L Anion Gap (4.00-12.00) mmol/L BUN (9.0-27.0) mg/dL Est GFR (CKD-EPI) (>=60) BUN/Creatinine Ratio (12.00-20.00) Ratio Glucose (70-110) mg/dL POC Glucose (mg/dL) 247 H 288 H (70-110) mg/dL Hemoglobin A1c (<=6.0) % Assessment and Plan Assessment: 1. Left knee osteoarthritis -Postop day #1 status post left total knee arthroplasty Plan: 1. Left knee osteoarthritis -left total knee arthroplasty performed yesterday, 12/21/2023. Patient stable bedside this morning. Case management working on PREETHI placement. Continue PT/OT daily. We will continue to follow patient during stay in hospital. Plan for discharge to rehab once Auth is obt ained within the next couple days. 2. Pain management -[place] 3. GI prophylaxis -senna 4. DVT prophylaxis -Xarelto 5. Appreciate medical management 6. Encourage incentive spirometer use 7. PT/OT -weightbearing as tolerated with walker and assistance 8. Discharge planning -discharge to rehab once Auth obtained Time with Patient: Less than 30
--- NOTE | 2023-12-22 13:53 | P.PN ---
Subjective Progress Note Date: 12/22/23 Hospital course: Patient is a very pleasant 78-year-old female with a past medical history of atrial fibrillation on anticoagulation with Xarelto, hypertension, hy perlipidemia, insulin-dependent diabetes mellitus, obstructive sleep apnea CPAP dependent nightly, GERD with Montalvo's esophagus, and osteoarthrosis. Patient is currently admitted under orthopedic surgery team status post elective left total knee arthroplasty secondary to severe left knee tricompartmental osteoarthrosis. Surgical procedure was completed by Dr. Bunch. We were consulted for medical management throughout hospitalization. Physical exam: Patient was seen and fully evaluated at bedside this morning. She is postoperative day 1. Patient reports persistent moderate postoperative pain and difficulties with ambulation requiring 1-2 person assist at all times. medical coding manager also at bedside discussing shelter facility placement options. Patient denies having any additional complaints, questions, needs, or concerns at this time. Vital signs reviewed and stable. General: Nontoxic, no distress and appears stated age. Derm: Skin warm and dry, normal coloration for ethnicity. Head: Atraumatic, normocephalic and symmetric. Eyes: EOM's intact, no lid lag, and anicteric sclera Mouth: no lip lesions, mucus membranes moist Cardiovascular: Irregularly irregular, systolic murmur, positive posterior tibial pulses bilaterally, and cap refill < 2 seconds. Lungs: Respirations even, regular, and unlabored on room air. Lungs CTA bilaterally, no rhonchi, no rales, no wheezing, and no accessory muscle usage. Abdominal: soft, nontender to palpation, no guarding, no appreciable organomegaly Ext: No gross muscle atrophy, no edema, no contractures. Movement and sensation intact. Postoperative dressing left knee in place along with Roscoe wrap and ice pack. Neuro: Speech clear, face symmetrical and CN II-XII grossly intact with no noted focal neuro deficits Psych: Alert and oriented to person, place, time, and situation. Appropriate and pleasant affect. Assessment and Plan of Care: Status post left total knee arthroplasty Management per primary admitting orthopedic surgery team including DVT prophylaxis, pain management, wound/dressing management, weightbearing, and PT/OT. Patient currently on DVT prophylaxis with Xarelto 15 mg daily. Insulin Dependent Diabetes Mellitus with hyperglycemia Blood glucose has remained elevated but improved from previous 472 down to 240 this morning. Continue to hold Ozempic and metformin. Patient to continue glycemic protocol with Levemir 24 units nightly along with NovoLog sliding scale. Hemoglobin A1c 8.6%. Hypomagnesemia Magnesium 1.7. Orders placed for Mag-Ox 400 mg p.o. x 1 dose. Paroxysmal atrial fibrillation, currently in atrial fibrillation with rate ranging between 90-100. Patient reports missing morning dose of metoprolol, rate ranging 90s to 100. Will give 1 dose of metoprolol 50 mg now. Order placed for telemetry monitoring. Continue Xarelto 15 mg daily and metoprolol 50 mg twice daily. Hypertension Monitor vital signs and continue daily medication regimen including losartan/hydrochlorothiazide 50-12.5 mg tablets daily and metoprolol 50 mg twice daily. Hyperlipidemia Continue daily medication regimen with atorvastatin 20 mg nightly. Data and imaging reviewed: Postoperative labs reviewed. CBC showing mild leukocytosis with WBC count of 12.99 otherwise no significant abnormalities. BMP showing mild hyponatremia with sodium of 133, slightly elevated anion gap of 12.10, and blood glucose of 240. Magnesium 1.7. Vital signs reviewed. Blood pressure 117/75, heart rate 67, respiratory rate 20, temp 98.1 F, and SpO2 of 97% on room air. Thank you for allowing us to participate in the care of this pleasant patient. Do not hesitate to contact us with questions. Someone can be reached from the [facility] hospitalist group all hours of the day at [phone] or via [email or web address]. Patient was seen independently by Nurse Practitioner. This document was prepared using [employer] dictation software. Please allow for errors in program/music director while rare they do occur. Abdon Dudley NP rendered care for this patient independently, reviewed the findings and plan as documented in the note above. I did not physically speak with or examine the patient on this date Objective - Vital Signs Vital signs: Vital Signs Temp 98.1 F 12/22/23 07:27 Pulse 67 12/22/23 07:27 Resp 20 12/22/23 07:27 BP 117/75 12/22/23 07:27 Pulse Ox 95 12/22/23 02:03 FiO2 Intake & Output 12/21/23 12/22/23 12/22/23 18:59 06:59 18:59 Intake Total 1600 Output Total 50 1000 Balance 1550 -1000 Weight 123.6 kg Intake: IV 1600 Output: Urine 1000 Estimated Blood Loss 50 Other: Voiding Method External Catheter # Voids 2 - Labs CBC & Chem 7: 12/22/23 04:23 12/22/23 04:23 Labs: Abnormal Lab Results - Last 24 Hours (Table) 12/21/23 12/21/23 12/21/23 Range/Units 10:26 14:29 16:17 POC Glucose (mg/dL) 207 H 472 H 382 H (70-110) mg/dL 12/21/23 12/22/23 Range/Units 20:11 06:27 POC Glucose (mg/dL) 395 H 247 H (70-110) mg/dL
[2023-12-22 16:50] LABS: Glucose,Whole Blood 408 mg/dL (70-110)
[2023-12-22] MEDS: MAGNESIUM OXIDE 400 MG TAB PO STA (17:09)
[2023-12-22] MEDS: INSULIN ASPART (NovoLOG) 100 UNIT/ML VIAL SQ ONE (17:35)
[2023-12-22 21:58] LABS: Glucose,Whole Blood 253 mg/dL (70-110)
[2023-12-23 06:21] LABS: Glucose,Whole Blood 295 mg/dL (70-110)
[2023-12-23 08:49] LABS: HCT 32.7 % (37.2-46.3); HGB 10.8 g/dL (12.0-15.0); MCH 29.5 pg (27.0-32.0); MCV 89.3 FL (80.0-97.0); Mean Platelet Volume 9.6 FL (9.5-12.2); NRBC Per 100 WBC 0 X 10*3/uL (0.00-0.01); Platelet Count 287 X 10*3/uL (140-440); RBC 3.66 X 10*6/uL (4.10-5.20); RDW 12.7 % (11.5-14.5); WBC 9.79 X 10*3/uL (4.50-10.00)
[2023-12-23 09:07] LABS: Blood Urea Nitrogen 21.5 mg/dL (9.0-27.0); Calcium 8.8 mg/dL (8.7-10.3); Carbon Dioxide 20.6 mmol/L (21.6-31.8); Chloride 99 mmol/L (96-109); Glucose 347 mg/dL (70-110); Magnesium 1.5 mg/dL (1.5-2.4); Potassium 4.4 mmol/L (3.5-5.5); Sodium 133 mmol/L (135-145)
[2023-12-23 11:41] LABS: Glucose,Whole Blood 343 mg/dL (70-110)
--- NOTE | 2023-12-23 12:08 | P.PN ---
Subjective Progress Note Date: 12/23/23 Principal diagnosis: Left knee osteoarthritis Patient was seen at bedside this morning sitting up in chair with dressing present over left knee. Patient says she did get up with therapy this morning and was able to walk to the door and back. Patient mentions still having increas ed pain to LLE when bearing weight. Patient says she normally wears depends at home. Patient hoping to go to [facility] for rehab upon discharge from the hospital. Patient denies any other issues at this time. Objective - Vital Signs Vital signs: Vital Signs Temp 98.7 F 12/23/23 08:00 Pulse 87 12/23/23 08:00 Resp 17 12/23/23 08:00 BP 168/80 12/23/23 08:00 Pulse Ox 99 12/23/23 08:00 FiO2 Intake & Output 12/22/23 12/23/23 12/23/23 18:59 06:59 18:59 Intake Total 400 Output Total 550 2100 Balance -550 -2100 400 Intake: Oral 400 Output: Urine 550 2100 Other: Voiding Method External Catheter # Voids 1 400 - Exam Left knee: Incision is clean, dry, and intact. The exofin fusion tape is in good condition. There is minimal soft tissue swelling and ecchymosis surrounding the medial and lateral aspects of the incision. Calf is soft, no tenderness with palpation. Plantar flexion, dorsiflexion, EHL, FHL are intact. Sensory exam to light touch throughout the extremity is intact, dorsal pedis pulses 2+. - Labs CBC & Chem 7: 12/23/23 04:44 12/23/23 04:44 Labs: Abnormal Lab Results - Last 24 Hours (Table) 12/22/23 12/22/23 12/23/23 Range/Units 16:48 21:47 04:44 RBC 3.66 L (4.10-5.20) X 10*6/uL Hgb 10.8 L (12.0-15.0) g/dL Hct 32.7 L (37.2-46.3) % Sodium (135-145) mmol/L Carbon Dioxide (21.6-31.8) mmol/L Anion Gap (4.00-12.00) mmol/L Est GFR (CKD-EPI) (>=60) BUN/Creatinine Ratio (12.00-20.00) Ratio Glucose (70-110) mg/dL POC Glucose (mg/dL) 408 H 253 H (70-110) mg/dL 12/23/23 12/23/23 12/23/23 Range/Units 04:44 06:16 11:39 RBC (4.10-5.20) X 10*6/uL Hgb (12.0-15.0) g/dL Hct (37.2-46.3) % Sodium 133 L (135-145) mmol/L Carbon Dioxide 20.6 L (21.6-31.8) mmol/L Anion Gap 13.40 H (4.00-12.00) mmol/L Est GFR (CKD-EPI) 57 L (>=60) BUN/Creatinine Ratio 21.50 H (12.00-20.00) Ratio Glucose 347 H (70-110) mg/dL POC Glucose (mg/dL) 295 H 343 H (70-110) mg/dL Assessment and Plan Assessment: 1. Left knee osteoarthritis -Postop day #2 status post left total knee arthroplasty Plan: 1. Left knee osteoarthritis -left total knee arthroplasty performed 12/21/2023. Patient stable bedside this morning. Case management working on PREETHI placement. Continue PT/OT daily. We will continue to follow patient during stay in hospital. Plan for discharge to rehab tmrw, 12/24/2023 2. Pain management -[place] 3. GI prophylaxis -senna 4. DVT prophylaxis -Xarelto 5. Appreciate medical management 6. Encourage incentive spirometer use 7. PT/OT -weightbearing as tolerated with walker and assistance 8. Discharge planning -discharge to rehab tmrw. Time with Patient: Less than 30
[2023-12-23] MEDS: MAGNESIUM HYDROXIDE 2,400 MG/30 ML CUP PO SCH (14:35)
--- NOTE | 2023-12-23 16:35 | P.PN ---
Subjective Progress Note Date: 12/23/23 Hospital course: Patient is a very pleasant 78-year-old female with a past medical history of atrial fibrillation on anticoagulation with Xarelto, hypertension, hy perlipidemia, insulin-dependent diabetes mellitus, obstructive sleep apnea CPAP dependent nightly, GERD with Montalvo's esophagus, and osteoarthrosis. Patient is currently admitted under orthopedic surgery team status post elective left total knee arthroplasty secondary to severe left knee tricompartmental osteoarthrosis. Surgical procedure was completed by Dr. Bunch. We were consulted for medical management throughout hospitalization. Physical exam: Patient was seen and fully evaluated at bedside this morning. She is postoperative day 2. Patient reports mild to moderate postoperative pain and currently rating 4 out of 10 at this time. Patient also reports continued difficulties with ambulation. Patient is planning for discharge to [facility]. Currently awaiting insurance authorization. Patient denies having any other questions, needs, concerns, or complaints at this time. Vital signs reviewed and stable. General: Nontoxic, no distress and appears stated age. Derm: Skin warm and dry, normal coloration for ethnicity. Head: Atraumatic, normocephalic and symmetric. Eyes: EOM's intact, no lid lag, and anicteric sclera Mouth: no lip lesions, mucus membranes moist Cardiovascular: Irregularly irregular, systolic murmur, positive posterior tibial pulses bilaterally, and cap refill < 2 seconds. Lungs: Respirations even, regular, and unlabored on room air. Lungs CTA bilaterally, no rhonchi, no rales, no wheezing, and no accessory muscle usage. Abdominal: soft, nontender to palpation, no guarding, no appreciable organomegaly Ext: No gross muscle atrophy, no edema, no contractures. Movement and sensation intact. Postoperative dressing left knee in place along with Roscoe wrap and ice pack. Neuro: Speech clear, face symmetrical and CN II-XII grossly intact with no noted focal neuro deficits Psych: Alert and oriented to person, place, time, and situation. Appropriate and pleasant affect. Assessment and Plan of Care: Status post left total knee arthroplasty Management per primary admitting orthopedic surgery team including DVT prophylaxis, pain management, wound/dressing management, weightbearing, and PT/OT. Patient currently on DVT prophylaxis with Xarelto 15 mg daily. Insulin Dependent Diabetes Mellitus with hyperglycemia Blood glucose remains elevated at 347 this morning. Levemir increased to 30 units nightly and patient placed on fixed dose of NovoLog 3 units TID daily with meals along with continuation of glycemic protocol with Levemir 24 units nightly along with NovoLog sliding scale. Hemoglobin A1c 8.6%. Hypomagnesemia Magnesium 1.5. Orders placed for magnesium sulfate 2 g IVPB. Paroxysmal atrial fibrillation, currently in atrial fibrillation with rate ranging between 90-100. Patient reports missing morning dose of metoprolol, rate ranging 90s to 100. Will give 1 dose of metoprolol 50 mg now. Order placed for telemetry monitoring. Continue Xarelto 15 mg daily and metoprolol 50 mg twice daily. Hypertension Monitor vital signs and continue daily medication regimen including losartan/hydrochlorothiazide 50-12.5 mg tablets daily and metoprolol 50 mg twice daily. Hyperlipidemia Continue daily medication regimen with atorvastatin 20 mg nightly. Data and imaging reviewed: Morning labs reviewed. CBC showing stable normocytic anemia with hemoglobin of 10.8. BMP showing mild hyponatremia with sodium of 133, hypocarbia with bicarb of 20.6, and slightly elevated anion gap of 13.40. Blood glucose is elevated again this morning at 347. Magnesium 1.5. Vital signs reviewed. Blood pressure 166/80, heart rate 87, respiratory rate 17, temp 98.7 F, and SpO2 of 99% on room air. Thank you for allowing us to participate in the care of this pleasant patient. Do not hesitate to contact us with questions. Someone can be reached from the [facility] hospitalist group all hours of the day at [phone] or via [employer] serve. Patient was seen independently by Nurse Practitioner. This document was prepared using [employer] dictation software. Please allow for errors in wiring mechanic while rare they do occur. I reviewed the documentation as provided by the REGINA above, who is the original author of this note. I agree with the documented assessment and plan, with the following changes: none Objective - Vital Signs Vital signs: Vital Signs Temp 98.7 F 12/23/23 08:00 Pulse 87 12/23/23 08:00 Resp 17 12/23/23 08:00 BP 168/80 12/23/23 08:00 Pulse Ox 99 12/23/23 08:00 FiO2 Intake & Output 12/22/23 12/23/23 12/23/23 18:59 06:59 18:59 Intake Total 400 Output Total 550 2100 Balance -550 -2100 400 Intake: Oral 400 Output: Urine 550 2100 Other: Voiding Method External Catheter # Voids 1 - Labs CBC & Chem 7: 12/23/23 04:44 12/23/23 04:44 Labs: Abnormal Lab Results - Last 24 Hours (Table) 12/22/23 12/22/23 12/22/23 Range/Units 04:23 04:23 04:23 WBC 12.99 H (4.50-10.00) X 10*3/uL Hct 36.5 L (37.2-46.3) % Immature Gran # 0.05 H (0.00-0.04) X 10*3/uL Neutrophils # 9.54 H (1.80-7.70) X 10*3/uL Monocytes # 1.41 H (0.20-1.00) X 10*3/uL Eosinophils # 0.01 L (0.04-0.35) X 10*3/uL Sodium 133 L (135-145) mmol/L Anion Gap 12.10 H (4.00-12.00) mmol/L BUN 27.2 H (9.0-27.0) mg/dL Est GFR (CKD-EPI) 51 L (>=60) BUN/Creatinine Ratio 24.73 H (12.00-20.00) Ratio Glucose 240 H (70-110) mg/dL POC Glucose (mg/dL) (70-110) mg/dL Hemoglobin A1c 8.6 H (<=6.0) % 12/22/23 12/22/23 12/22/23 Range/Units 11:18 16:48 21:47 WBC (4.50-10.00) X 10*3/uL Hct (37.2-46.3) % Immature Gran # (0.00-0.04) X 10*3/uL Neutrophils # (1.80-7.70) X 10*3/uL Monocytes # (0.20-1.00) X 10*3/uL Eosinophils # (0.04-0.35) X 10*3/uL Sodium (135-145) mmol/L Anion Gap (4.00-12.00) mmol/L BUN (9.0-27.0) mg/dL Est GFR (CKD-EPI) (>=60) BUN/Creatinine Ratio (12.00-20.00) Ratio Glucose (70-110) mg/dL POC Glucose (mg/dL) 288 H 408 H 253 H (70-110) mg/dL Hemoglobin A1c (<=6.0) % 12/23/23 Range/Units 06:16 WBC (4.50-10.00) X 10*3/uL Hct (37.2-46.3) % Immature Gran # (0.00-0.04) X 10*3/uL Neutrophils # (1.80-7.70) X 10*3/uL Monocytes # (0.20-1.00) X 10*3/uL Eosinophils # (0.04-0.35) X 10*3/uL Sodium (135-145) mmol/L Anion Gap (4.00-12.00) mmol/L BUN (9.0-27.0) mg/dL Est GFR (CKD-EPI) (>=60) BUN/Creatinine Ratio (12.00-20.00) Ratio Glucose (70-110) mg/dL POC Glucose (mg/dL) 295 H (70-110) mg/dL Hemoglobin A1c (<=6.0) %
[2023-12-23 16:59] LABS: Glucose,Whole Blood 367 mg/dL (70-110)
[2023-12-23] MEDS: MAGNESIUM SULFATE-D5W PMX 1 GM in DEXTROSE/WATER 1 100ML.BAG IVPB SCH (17:20)
[2023-12-23] MEDS: INSULIN ASPART (NovoLOG) 100 UNIT/ML VIAL SQ SCH (17:21)
[2023-12-23 20:38] LABS: Glucose,Whole Blood 371 mg/dL (70-110)
[2023-12-23 22:24] LABS: Glucose,Whole Blood 375 mg/dL (70-110)
[2023-12-23] MEDS: INSULIN DETEMIR (LEVEMIR) 100 UNIT/ML SYR SQ SCH (23:16)
[2023-12-24 03:54] VITALS: RESP 18
[2023-12-24 06:34] LABS: Glucose,Whole Blood 331 mg/dL (70-110)
--- NOTE | 2023-12-24 07:23 | P.DS ---
Providers Date of admission: 12/21/2023 Expected date of discharge: 12/24/23 Attending physician: Natan Bunch Consults: 12/21/23 15:03 Consult Physician Routine Consulting Provider: Aneta Richmond Consult Reason/Comments: medical management Do you want consulting provider notified?: Yes Primary care physician: Aniya Dietz Hospital Course: Date of admission: 12/21/2023 Date of discharge: 12/24/2023 Admission diagnosis: Right knee osteoarthritis Discharge diagnosis: Same Attending physician: Dr. Bunch Surgical procedures: Right total knee arthroplasty Brief history: Patient is a 78-year-old female with a history of progressive primary right knee osteoarthritis. At this point patient has failed conservative treatment measures and has opted to proceed with a elective right total knee arthroplasty. Hospital course: Details of patient's surgery can be found in operative report. Patient tolerated the procedure well and was subsequently transported to orthopedic floor. Patient's orthopeidc and medical care was provided daily. Patient had daily laboratory tests performed for evaluation of overall blood counts. Patient had daily physical therapy to include strengthening range of motion as well as education with walker ambulation. Patient was treated with Xarelto for their postoperative DVT prophylaxis during their inpatient stay. Patient was noted to have a relatively uneventful postoperative course. Patient reported satisfactory pain control with oral pain medications by postoperative day 3. Patient showed satisfactory progress with physical therapy. Patient moved steadily through the program and had no difficulty meeting the goals by postoperative day 3. Given patient's otherwise satisfactory course and having met physical therapy goals, plan is to discharge patient to rehab on postoperative day 3. Discharge condition/disposition: Patient will be discharged to rehab in stable condition. Discharge medications: Instructions are given on resumption of patient's normal daily medications per primary care recommendation, in addition patient will be prescribed [place]; senna; resume Xarelto 15 mg daily. Discharge instructions: 1. Wound care and infection precautions, keep incision dry and covered while showering, no lotions, creams, moisturizers. No soaking, tubs, pools, hottubs. Do not scrub over the incision. 2. Weight-bear as tolerated with walker / cane until follow-up. 3. Ice and elevate when necessary. Do not exceed 20 minutes per hour with ice pack. 4. Utilize compression sleeve until seen at first follow up appointment. 5. Visiting nursing care. 6. Home physical therapy including home CPM. 7. Pain meds and anticoagulants per prescription. 8. Pain medication has potential to cause constipation. Increase oral fluid and fiber intake. Contact primary care provider if you have not had a bowel movement within 48 hours after discharge 9. No anti-inflammatory medication until discussed at first post operative visit, this including Motrin, Aleve, Mobic, Diclofenac. 10. Follow up in office at 2 weeks postop with Rosales Castro PA-C / Pasha Aguilar PA-C 11. Follow up with your primary care doctor 7-10 days after discharge. 12. Contact [facility] with any questions, . Assessment: Right knee osteoarthritis Procedures: Right total knee arthroplasty Patient Condition at Discharge: Good Plan - Discharge Summary Discharge Rx Participant: No New Discharge Prescriptions: New HYDROcodone/APAP 7.5-325MG [[place] 7.5-325] 1 tab PO Q6HR PRN #24 tab PRN Reason: Pain Sennosides/Docusate Sodium [Senna Plus 8.6-50 mg Softgel] 1 each PO DAILY #20 capsule Continue Rivaroxaban [Xarelto] 15 mg PO HS No Action Atorvastatin [Lipitor] 20 mg PO HS Albuterol Inhaler [Ventolin Hfa Inhaler] 1 puff INHALATION RT-Q4H PRN PRN Reason: Shortness Of Breath metFORMIN HCL [Glucophage] 1,000 mg PO HS Fexofenadine/Pseudoephedrine [Pallavi-D 24 Hour Tablet] 1 tab PO QAM Insulin Aspart (Niacinamide) [Fiasp 100 Unit/ml Flextouch Pen] 0 units SQ AC- TID [place]-3 Acid Ethyl Esters [Lovaza] 2 gm PO BID Acetaminophen-Codeine 300-30mg [Tylenol w/codeine #3] 1 tab PO Q6H PRN PRN Reason: Pain Lansoprazole [Prevacid] 30 mg PO QAM Meclizine [Antivert] 12.5 mg PO HS Insulin Degludec [Tresiba] 24 units SQ HS Semaglutide [Ozempic] 2 mg SQ TH Nf-Neuro Xt Supplement 1 tab PO HS Losartan-Hctz 50-12.5 mg [Hyzaar 50-12.5] 1 tab PO QAM Metoprolol Tartrate [Lopressor] 50 mg PO BID metFORMIN HCL [Glucophage] 500 mg PO QAM Discharge Medication List Albuterol Inhaler [Ventolin Hfa Inhaler] 1 puff INHALATION RT-Q4H PRN 03/30/20 [History] Atorvastatin [Lipitor] 20 mg PO HS 03/30/20 [History] metFORMIN HCL [Glucophage] 1,000 mg PO HS 03/30/20 [History] Fexofenadine/Pseudoephedrine [Pallavi-D 24 Hour Tablet] 1 tab PO QAM 12/13/20 [History] Insulin Aspart (Niacinamide) [Fiasp 100 Unit/ml Flextouch Pen] 0 units SQ AC-TID 12/13/20 [History] [place]-3 Acid Ethyl Esters [Lovaza] 2 gm PO BID 12/13/20 [History] Acetaminophen-Codeine 300-30mg [Tylenol w/codeine #3] 1 tab PO Q6H PRN 12/16/23 [History] Insulin Degludec [Tresiba] 24 units SQ HS 12/16/23 [History] Lansoprazole [Prevacid] 30 mg PO QAM 12/16/23 [History] Losartan-Hctz 50-12.5 mg [Hyzaar 50-12.5] 1 tab PO QAM 12/16/23 [History] Meclizine [Antivert] 12.5 mg PO HS 12/16/23 [History] Metoprolol Tartrate [Lopressor] 50 mg PO BID 12/16/23 [History] Nf-Neuro Xt Supplement 1 tab PO HS 12/16/23 [History] Rivaroxaban [Xarelto] 15 mg PO HS 12/16/23 [History] Semaglutide [Ozempic] 2 mg SQ TH 12/16/23 [History] metFORMIN HCL [Glucophage] 500 mg PO QAM 12/16/23 [History] HYDROcodone/APAP 7.5-325MG [[place] 7.5-325] 1 tab PO Q6HR PRN #24 tab 12/24/23 [Rx] Sennosides/Docusate Sodium [Senna Plus 8.6-50 mg Softgel] 1 each PO DAILY #20 capsule 12/24/23 [Rx] Follow up Appointment(s)/Referral(s): Pasha Aguilar PAC [PHYSICIAN DANCE ARTIST] - 2 Weeks Mejia Andre [NON-STAFF] - As Needed Patient Instructions/Handouts: Knee Replacement (DC), Knee Replacement (GEN) Activity/Diet/Wound Care/Special Instructions: Orthopedic Discharge Instructions: 1. Wound care and infection precautions, keep incision dry and covered while showering, no lotions, creams, moisturizers. No soaking, pools, hot tubs. Do not scrub over incision. 2. Weight-bear as tolerated with walker / cane until follow-up. 3. Ice and elevate when necessary. Do not exceed 20 minutes per hour with ice pack. 4. Utilize compression sleeve until seen at first follow up appointment. 5. Pain meds and anticoagulants per prescription. 6. Pain medication has potential to cause constipation. Increase oral fluid and fiber intake. Contact primary care provider if you have not had a bowel movement within 48 hours after discharge. 7. No anti-inflammatory medication until discussed at first post operative visit, this including Motrin, Aleve, Mobic, Diclofenac. 8. Follow up in office at 2 weeks postop with Rosales Castro PA-C / Pasha Aguilar PA-C 9. Follow up with your primary care doctor 7-10 days after discharge. 10. Contact [facility] with any questions, . Keep incision clean, dry, intact. While showering, cover fusion tape was Saran wrap. Keep fusion tape on until follow-up appointment in office in 2 weeks. Discharge Disposition: TRANSFER TO SNF/ECF
--- NOTE | 2023-12-24 07:25 | P.PN ---
Subjective Progress Note Date: 12/24/23 Principal diagnosis: Left knee osteoarthritis Patient was seen at bedside this morning. Patient says she is looking forward to working with PT this morning. Patient mentions still having increased pain to LLE when bearing weight. Patient says she normally wears depends at home. Patient hoping to go to [facility] for rehab today upon discharge from the hospital. Patient denies any other issues at this time. Objective - Vital Signs Vital signs: Vital Signs Temp 98.2 F 12/24/23 01:57 Pulse 81 12/24/23 01:57 Resp 18 12/24/23 03:53 BP 142/89 12/24/23 01:57 Pulse Ox 97 12/24/23 01:57 FiO2 Intake & Output 12/23/23 12/24/23 12/24/23 18:59 06:59 18:59 Intake Total 2200 1190 Output Total 900 1500 Balance 1300 -310 Intake: Oral 2200 1190 Output: Urine 900 1500 Other: Voiding Method External Catheter # Voids 400 - Exam Left knee: Incision is clean, dry, and intact. The exofin fusion tape is in good condition. There is minimal soft tissue swelling and ecchymosis surrounding the medial and lateral aspects of the incision. Calf is soft, no tenderness with palpation. Plantar flexion, dorsiflexion, EHL, FHL are intact. Sensory exam to light touch throughout the extremity is intact, dorsal pedis pulses 2+. - Labs CBC & Chem 7: 12/23/23 04:44 12/23/23 04:44 Labs: Abnormal Lab Results - Last 24 Hours (Table) 12/23/23 12/23/23 12/23/23 Range/Units 04:44 04:44 11:39 RBC 3.66 L (4.10-5.20) X 10*6/uL Hgb 10.8 L (12.0-15.0) g/dL Hct 32.7 L (37.2-46.3) % Sodium 133 L (135-145) mmol/L Carbon Dioxide 20.6 L (21.6-31.8) mmol/L Anion Gap 13.40 H (4.00-12.00) mmol/L Est GFR (CKD-EPI) 57 L (>=60) BUN/Creatinine Ratio 21.50 H (12.00-20.00) Ratio Glucose 347 H (70-110) mg/dL POC Glucose (mg/dL) 343 H (70-110) mg/dL 12/23/23 12/23/23 12/23/23 Range/Units 16:58 20:37 22:23 RBC (4.10-5.20) X 10*6/uL Hgb (12.0-15.0) g/dL Hct (37.2-46.3) % Sodium (135-145) mmol/L Carbon Dioxide (21.6-31.8) mmol/L Anion Gap (4.00-12.00) mmol/L Est GFR (CKD-EPI) (>=60) BUN/Creatinine Ratio (12.00-20.00) Ratio Glucose (70-110) mg/dL POC Glucose (mg/dL) 367 H 371 H 375 H (70-110) mg/dL 12/24/23 Range/Units 06:32 RBC (4.10-5.20) X 10*6/uL Hgb (12.0-15.0) g/dL Hct (37.2-46.3) % Sodium (135-145) mmol/L Carbon Dioxide (21.6-31.8) mmol/L Anion Gap (4.00-12.00) mmol/L Est GFR (CKD-EPI) (>=60) BUN/Creatinine Ratio (12.00-20.00) Ratio Glucose (70-110) mg/dL POC Glucose (mg/dL) 331 H (70-110) mg/dL Assessment and Plan Assessment: 1. Left knee osteoarthritis -Postop day #3 status post left total knee arthroplasty Plan: 1. Left knee osteoarthritis -left total knee arthroplasty performed 12/21/2023. Patient stable bedside this morning. Continue PT/OT daily. Plan for discharge to rehab today, 12/24/2023 2. Pain management -[place] 3. GI prophylaxis -senna 4. DVT prophylaxis -Xarelto 5. Appreciate medical management 6. Encourage incentive spirometer use 7. PT/OT -weightbearing as tolerated with walker and assistance 8. Discharge planning -discharge to rehab today Time with Patient: Less than 30
[2023-12-24 07:28] VITALS: BP 117/77; PULSE 92; TEMP 97.8
[2023-12-24 08:57] LABS: HCT 32.9 % (37.2-46.3); MCH 29.1 pg (27.0-32.0); MCHC 33.4 g/dL (32.0-37.0); Mean Platelet Volume 9.7 FL (9.5-12.2); NRBC Per 100 WBC 0 X 10*3/uL (0.00-0.01); Platelet Count 328 X 10*3/uL (140-440); RBC 3.78 X 10*6/uL (4.10-5.20); RDW 12.7 % (11.5-14.5)
[2023-12-24 08:58] LABS: Basophils # (A) 0.06 X 10*3/uL (0.00-0.10); Basophils % (A) 0.6 %; Eosinophils # (A) 0.18 X 10*3/uL (0.04-0.35); Eosinophils % (A) 1.9 %; Lymphocytes # (A) 2.01 X 10*3/uL (0.90-5.00); Lymphocytes % (A) 21.6 %; Monocytes # (A) 0.93 X 10*3/uL (0.20-1.00); Neutrophils # (A) 6.07 X 10*3/uL (1.80-7.70); Neutrophils % (A) 65.4 %
[2023-12-24 09:23] LABS: BUN/Creat Ratio 20.12 Ratio (12.00-20.00); Blood Urea Nitrogen 16.1 mg/dL (9.0-27.0); Calcium 9.2 mg/dL (8.7-10.3); Carbon Dioxide 24.4 mmol/L (21.6-31.8); Chloride 97 mmol/L (96-109); Glucose 316 mg/dL (70-110); Magnesium 1.9 mg/dL (1.5-2.4); Potassium 4.6 mmol/L (3.5-5.5); Sodium 132 mmol/L (135-145)
[2023-12-24 11:13] LABS: Glucose,Whole Blood 295 mg/dL (70-110)
--- NOTE | 2023-12-24 14:24 | P.PN ---
Subjective Progress Note Date: 12/24/23 Hospital course: Patient is a very pleasant 78-year-old female with a past medical history of atrial fibrillation on anticoagulation with Xarelto, hypertension, hy perlipidemia, insulin-dependent diabetes mellitus, obstructive sleep apnea CPAP dependent nightly, GERD with [place]alvo's esophagus, and osteoarthrosis. Patient is currently admitted under orthopedic surgery team status post elective left total knee arthroplasty secondary to severe left knee tricompartmental osteoarthrosis. Surgical procedure was completed by Dr. Bunch. We were consulted for medical management throughout hospitalization. Physical exam: Patient was seen and fully evaluated at bedside this morning. She is postoperative day 2. Patient reports mild to moderate postoperative pain and currently rating 4 out of 10 at this time. Patient also reports continued difficulties with ambulation. Patient is planning for discharge to [facility]. Currently awaiting insurance authorization. Patient denies having any other questions, needs, concerns, or complaints at this time. Vital signs reviewed and stable. General: Nontoxic, no distress and appears stated age. Derm: Skin warm and dry, normal coloration for ethnicity. Head: Atraumatic, normocephalic and symmetric. Eyes: EOM's intact, no lid lag, and anicteric sclera Mouth: no lip lesions, mucus membranes moist Cardiovascular: Irregularly irregular, systolic murmur, positive posterior tibial pulses bilaterally, and cap refill < 2 seconds. Lungs: Respirations even, regular, and unlabored on room air. Lungs CTA bilaterally, no rhonchi, no rales, no wheezing, and no accessory muscle usage. Abdominal: soft, nontender to palpation, no guarding, no appreciable organomegaly Ext: No gross muscle atrophy, no edema, no contractures. Movement and sensation intact. Postoperative dressing left knee in place along with [place] wrap and ice pack. Neuro: Speech clear, face symmetrical and CN II-XII grossly intact with no noted focal neuro deficits Psych: Alert and oriented to person, place, time, and situation. Appropriate and pleasant affect. Assessment and Plan of Care: Status post left total knee arthroplasty Management per primary admitting orthopedic surgery team including DVT prophylaxis, pain management, wound/dressing management, weightbearing, and PT/OT. Patient currently on DVT prophylaxis with Xarelto 15 mg daily. Insulin Dependent Diabetes Mellitus with hyperglycemia Blood glucose remains elevated at 347 this morning. Levemir increased to 30 units nightly and patient placed on fixed dose of NovoLog 3 units TID daily with meals along with continuation of glycemic protocol with Levemir 24 units nightly along with NovoLog sliding scale. Hemoglobin A1c 8.6%. Hypomagnesemia Magnesium 1.5. Orders placed for magnesium sulfate 2 g IVPB. Paroxysmal atrial fibrillation, currently in atrial fibrillation with rate ranging between 90-100. Patient reports missing morning dose of metoprolol, rate ranging 90s to 100. Will give 1 dose of metoprolol 50 mg now. Order placed for telemetry monitoring. Continue Xarelto 15 mg daily and metoprolol 50 mg twice daily. Hypertension Monitor vital signs and continue daily medication regimen including losartan/hydrochlorothiazide 50-12.5 mg tablets daily and metoprolol 50 mg twice daily. Hyperlipidemia Continue daily medication regimen with atorvastatin 20 mg nightly. Data and imaging reviewed: Morning labs reviewed. CBC showing stable normocytic anemia with hemoglobin of 11.0. BMP showing mild hyponatremia with sodium of 132. Blood glucose 295. Magnesium 1.9. Vital signs reviewed. Blood pressure 117/77, heart rate 92, respiratory rate 18, temp 97.8 F, and SpO2 of 93% on room air. Thank you for allowing us to participate in the care of this pleasant patient. Do not hesitate to contact us with questions. Someone can be reached from the [facility] hospitalist group all hours of the day at [phone] or via perfect serve. Patient was seen independently by Nurse Practitioner. This document was prepared using [employer] dictation software. Please allow for errors in defect repairer glassware while rare they do occur. I reviewed the documentation as provided by the REGINA above, who is the original author of this note. I agree with the documented assessment and plan, with the following changes: none Objective - Vital Signs Vital signs: Vital Signs Temp 97.8 F 12/24/23 07:27 Pulse 92 12/24/23 07:27 Resp 18 12/24/23 07:27 BP 117/77 12/24/23 07:27 Pulse Ox 93 L 12/24/23 07:27 FiO2 Intake & Output 12/23/23 12/24/23 12/24/23 18:59 06:59 18:59 Intake Total 2200 1190 Output Total 900 1500 Balance 1300 -310 Intake: Oral 2200 1190 Output: Urine 900 1500 Other: Voiding Method External Catheter # Voids 400 - Labs CBC & Chem 7: 12/24/23 06:19 12/24/23 06:19 Labs: Abnormal Lab Results - Last 24 Hours (Table) 12/23/23 12/23/23 12/23/23 Range/Units 04:44 11:39 16:58 Sodium 133 L (135-145) mmol/L Carbon Dioxide 20.6 L (21.6-31.8) mmol/L Anion Gap 13.40 H (4.00-12.00) mmol/L Est GFR (CKD-EPI) 57 L (>=60) BUN/Creatinine Ratio 21.50 H (12.00-20.00) Ratio Glucose 347 H (70-110) mg/dL POC Glucose (mg/dL) 343 H 367 H (70-110) mg/dL 12/23/23 12/23/23 12/24/23 Range/Units 20:37 22:23 06:32 Sodium (135-145) mmol/L Carbon Dioxide (21.6-31.8) mmol/L Anion Gap (4.00-12.00) mmol/L Est GFR (CKD-EPI) (>=60) BUN/Creatinine Ratio (12.00-20.00) Ratio Glucose (70-110) mg/dL POC Glucose (mg/dL) 371 H 375 H 331 H (70-110) mg/dL
== END 2023-12-24 12:46 ==
LOC: OR 05:37 → 4SSUR 09:30 → OR 12-24 12:46
PROVIDERS: ATTEND Orthopaedic Surgery
DX: M17.12 Unilateral primary osteoarthritis, left knee
CPT/HCPCS: 64448; 64999; 80048; 83036; 83735; 85025; 85027